=== PATIENT | female | born 1960 | race Caucasian/White ===

== ENCOUNTER 2016-05-21 14:24 | Outpatient (CLI) ==
[2016-05-21 15:36] LABS: ERYTHROCYTE SEDIMENTATION RATE 37 mm/hr (0-20); ESR INTERNAL QC INTERNAL QC VALID
[2016-05-21 15:51] LABS: CHOL/HDL RATIO 5.1 (4.5-5.5); FOLATE 9.7 ng/mL (3.1-20.5); MAGNESIUM 2.1 mg/dL (1.7-2.2)
[2016-05-22 13:13] LABS: ALPHA-1 GLOBULIN 0.2 g/dL (0.0-0.4); BETA GLOBULIN 1.3 g/dL (0.7-1.3); GAMMA GLOBULIN 0.9 g/dL (0.4-1.8); TOTAL GLOBULINS 3.5 g/dL (2.2-3.9)
== END 2016-05-21 14:25 | disposition home or self-care (01) ==
LOC: LAB 14:24
PROVIDERS: ATTEND Psychiatry & Neurology Neurology
DX: G62.9 Polyneuropathy, unspecified (principal)
CPT/HCPCS: 36415; 80061; 82607; 82746; 83036; 83735; 84165; 84439; 84443; 85651; 86140

== ENCOUNTER 2017-01-30 14:00 | Outpatient (RCR) ==
--- NOTE | 2017-01-15 10:42 | RS.OPPTEV2 ---
Date of Note: 01/13/17 Visit #: 1 Date of Evaluation: 01/13/17 Payer Source: Insurance ([facility]) Treatment Diagnosis: Gait difficulty, LE weakness and numbness History of Condition/Mechanism of Injury:: Patient reports having symptoms of neuropathy in both feet since finishing chemotherapy a year ago. States she has had back pain for 13 years, with no recent incident or change in her back pain. Prior Level of Function.....Patient was independent with: ADL's, Self Care, Caregiving, Ambulation/Mobility, Community Integration/Access Level of Function: She no longer is able to work and is on disability. Current Subjective/complaints:: States she has burning pain and impaired sensation. She has been using a straight cane with ambulation for ~ a year, because she was falling. States the cane has greatly decreased her falls. She feels that she shuffles her feet when she walks at times. States she cannot tolerate walking long distances. States she can only drive short distances. States soaking her feet in salt water helps decrease her pain. Reports foot pain keeps her from sleeping. States she gets maybe 4 hours of sleep per night. States her ability to sleep at night depends on how much she has been on her feet that day. Reports difficulty standing to complete ADL's. Treatment Side (optional): Bilateral Medical History Medical History: Hypertension, Arthritis Medical History Comments:: History of fractured right ankle Surgical History: Hysterectomy Smoking Status: Current every day smoker Hx Home Medications: Flexeril, Neurontin, Hydrocodone, Tylenol, Advil Patient's Goals: She would like to be able to walk without the cane. Pain Assessment - Pain Description Pain Location: feet Pain Description: Burning Current Pain Intensity: 4/10 Worst Pain Intensity: 10/10 Functional Outcome Measure Tinetti: 12 (04/30=57.2% impairment) - G Codes & Severity Modifier G Codes & Modifier: NA Source of G Code score: NA Observation - Observation Posture: Forward Head, Rounded Shoulders Gait - Gait Pattern Gait Comments: Patient ambulates with straight cane with flexed forward posture. Demonstrates minimal foot clearance bilaterally and does not consistently clear her feet. Demonstrates decreased bilateral hip and knee flexion. Exhibits decreased heel strike and toe-off bilaterally. General Range of Motion: Bilateral LE AROM is WFL's. Muscle Strength: Right hip and knee strength 4/5 throughout, ankle 3- to 3/5. Left hip and knee 4 to 4+/5 throughout, ankle 3/5. Sensation - Sensation Comments: Reports both feet are entirely numb and painful. Reports less sensitivity to the plantar aspect of the right foot compared to the left. Proprioception is mildly impaired on the left LE and moderately impaired on the right LE. Balance - Sitting Balance Static Sitting Balance: Good Dynamic Sitting Balance: Good - Standing Balance Static Standing Balance: Fair (+) Dynamic Standing Balance: Fair Coordination - Tests Bilateral Toe Tapping: Moderate Deviation (with faster speed) Interventions - Exercise/Activities/Manual Therapy Exercises/Activities: None given today. Patient wearing flip flops into the department. Advised patient that flip flops make her more at risk for falls. Recommended she wear a tennis shoes or at least a sandal with a heel strap. Manual Therapy: NA - Charges Total Direct Minutes: 50 mins Total Treatment Time: 50 mins Procedures billed for this date of service:: KARSTEN holloway. complexity Assessment Assessment: Patient presents to therapy with a diagnosis of LE neuropathy and gait difficulty. She presents with reports of significant bilateral foot pain and difficulty standing or walking. Reports a history of falls and decreased activity level due to difficulty with ambulation. She exhibits weakness throughout both LE's, especially the ankles. Her standing balance and coordination is moderately impaired. She scores 12/28 on Tinetti Assessment, putting her in the category of being at a high risk for falls. She demonstrates potential to gain increased safety and confidence with her mobility through strengthening, coordination, and balance activities. Patient Education: Education of diagnosis, Body/Joint mechanics, Education of Plan of Care Rehab Potential: Good Short Term Goals Goal #1: Pt independent and compliant with HEP. Goal to be met by: 01/29/17 Goal #2: Bilateral hip strength 4+/5. Goal to be met by: 01/29/17 Goal #3: Bilateral ankle strength 3+/5. Goal to be met by: 01/29/17 Goal #4: Static Standiing balance improved to good. Goal to be met by: 01/29/17 Correction Goals Goal #1: Pt knows HEP and to continue ex's to maintain functional level at D/C. Goal to be met by: 02/24/17 Goal #2: Score on Tinetti Assessment improved to 20/28. Goal to be met by: 02/24/17 Goal #3: Pt to ambulate community distances with minimal gait deviation w/ cane. Goal to be met by: 02/24/17 Goal #4: Pt able to amb. household distances w/o assistive device with good safety. Goal to be met by: 02/24/17 Plan - Treatment to be Provided Procedures: Therapeutic Exercises, Therapeutic Activity, Gait Training, Neuromuscular Rehab, Patient Education Modalities: No Modalities - Treatment Plan Frequency: 2-3 X week Duration: 4 weeks ORDER # VISITS AND/OR THROUGH DATE: 02/24/17 - Treatment Code (1) Leg weakness, bilateral Code(s): R29.898 - OT SYMPTOMS AND SIGNS INVOLVING THE MUSCULOSKELETAL SYSTEM Comments: R29.898 (2) Foot pain Code(s): M79.673 - PAIN IN UNSPECIFIED FOOT Qualifiers: Laterality: bilateral Qualified Code(s): M79.671 - Pain in right foot; M79.672 - Pain in left foot (3) Gait abnormality Code(s): R26.9 - UNSPECIFIED ABNORMALITIES OF GAIT AND MOBILITY Comments: R26.9 (4) Polyneuropathy Code(s): G62.9 - POLYNEUROPATHY, UNSPECIFIED Comments: G62.9
--- NOTE | 2017-01-20 14:57 | RS.OPPTDN ---
Subjective Date of Note: 01/20/17 Visit #: 3 Date of Evaluation: 01/13/17 Payer Source: Insurance ([employer]) Treatment Diagnosis: Gait difficulty, LE weakness and numbness Current Subjective/complaints:: Patient reports she is working on basic HEP. Reports fatigue with moderate activities at home and neuropathy in bilateral feet continues to be a problem. Pain Assessment - Pain Description Pain Location: feet Pain Description: Burning Current Pain Intensity: 4/10 Interventions - Exercise/Activities/Manual Therapy Exercises/Activities: 40mins Mat exercises of quad sets, isometric hip add, isometric ankle inversion. Alt hip flexion. SLR. Manual resistance for isometric hip flexion. Red theraband for hip abd in hook-lying, 2s/10reps and ankle df 2s/10reps. In sitting, LAQ, ankle pumps, and hip flexion. In standing toe-ups and marching in place. Reviewed safety. Total minutes of Exercise: 40mins Manual Therapy: NA HOME EXERCISE PROGRAM: Isometric hip add and hip flexion, SLR, standing toe-ups and marching. - Charges Total Direct Minutes: 40mins Total Treatment Time: 40mins Procedures billed for this date of service:: EX3 Assessment: Patient appears motivated to work on HEP today. Patient Education: Home Exercise Program, Home Safety, Activity Modification Patient demonstrates compliance with HEP?: Yes Short Term Goals Goal #1: Pt independent and compliant with HEP. Goal to be met by: 01/29/17 Progress towards Goal:: Progressing Goal #2: Bilateral hip strength 4+/5. Goal to be met by: 01/29/17 Goal #3: Bilateral ankle strength 3+/5. Goal to be met by: 01/29/17 Goal #4: Static Standiing balance improved to good. Goal to be met by: 01/29/17 Networking Specialist Goals Goal #1: Pt knows HEP and to continue ex's to maintain functional level at D/C. Goal to be met by: 02/24/17 Goal #2: Score on Tinetti Assessment improved to 20/28. Goal to be met by: 02/24/17 Goal #3: Pt to ambulate community distances with minimal gait deviation w/ cane. Goal to be met by: 02/24/17 Goal #4: Pt able to amb. household distances w/o assistive device with good safety. Goal to be met by: 02/24/17 Plan PLAN OF CARE EXPIRES ON:: 02/24/17 ORDER # VISITS AND/OR THROUGH DATE: 02/24/17 PLAN: Progress Exercises
--- NOTE | 2017-01-21 15:12 | RS.OPPTDN ---
Subjective Date of Note: 01/16/17 Visit #: 2 Date of Evaluation: 01/13/17 Payer Source: Insurance ([facility]) Treatment Diagnosis: Gait difficulty, LE weakness and numbness Current Subjective/complaints:: Patient says she has pain to both feet and reports general fatigue today to UE/LE's. Pain Assessment - Pain Description Pain Location: feet Pain Description: Burning Current Pain Intensity: 4/10 Interventions - Exercise/Activities/Manual Therapy Exercises/Activities: Patient performs in sitting: LAQ 1#, hip flexion1#, toe taps x 10, Shoulder shrugs, scap adduction, scap retraction with red tband all x 10. Supine: QS, SAQ 1#, pillow squeezes, isometric hip flexion/abd, DF with red tband all 2x10 reps. Total minutes of Exercise: 33 Manual Therapy: NA HOME EXERCISE PROGRAM: Isometric hip add and hip flexion, SLR, standing toe-ups and marching. - Charges Total Direct Minutes: 33 Total Treatment Time: 33 Procedures billed for this date of service:: ex2 Assessment: Patient appeared to moe therex well with mild general fatigue afterwards. Rests were given during supine activity. Patient will benefit from further therex to strengthen the LE's and core. Patient Education: Education of diagnosis, Body/Joint mechanics, Home Exercise Program, Home Safety, Activity Modification, Education of Plan of Care Short Term Goals Goal #1: Pt independent and compliant with HEP. Goal to be met by: 01/29/17 Progress towards Goal:: Progressing Goal #2: Bilateral hip strength 4+/5. Goal to be met by: 01/29/17 Goal #3: Bilateral ankle strength 3+/5. Goal to be met by: 01/29/17 Goal #4: Static Standiing balance improved to good. Goal to be met by: 01/29/17 Skilled Nursing Goals Goal #1: Pt knows HEP and to continue ex's to maintain functional level at D/C. Goal to be met by: 02/24/17 Goal #2: Score on Tinetti Assessment improved to 20/28. Goal to be met by: 02/24/17 Goal #3: Pt to ambulate community distances with minimal gait deviation w/ cane. Goal to be met by: 02/24/17 Goal #4: Pt able to amb. household distances w/o assistive device with good safety. Goal to be met by: 02/24/17 Plan PLAN OF CARE EXPIRES ON:: 02/24/17 ORDER # VISITS AND/OR THROUGH DATE: 02/24/17 PLAN: Progress Exercises
--- NOTE | 2017-01-28 13:27 | RS.OPPTDN ---
Subjective Date of Note: 01/28/17 Visit #: 4 Date of Evaluation: 01/13/17 Payer Source: Insurance ([employer]) Treatment Diagnosis: Gait difficulty, LE weakness and numbness Current Subjective/complaints:: Patient reports slight improvement in strength of the LE's. States she was out of town on a long weekend and is more tired today. Pain Assessment - Pain Description Pain Location: feet Pain Description: Burning Current Pain Intensity: 4/10 Interventions - Exercise/Activities/Manual Therapy Exercises/Activities: In sitting, LAQ, hip flexion, and ankle pumps. In supine , QS, SAQ increased to 2# and hook-lying LE lifts 2#. Isometric hip flexion. Isometric hip add and isometric ankle inversion with ball. Ankle df, inversion, and eversion with red tband and ham curl red theraband. All 2s/10reps. Patient assisted on and off stationary bike, 3mins slow revolutions. NEURO, 10mins standing toe-ups, mini-squats, and marching. Side-stepping and unilateral standing, all at hand rail for balance work. Assisted patient out to car. She walks with cane and safety with gait is discussed. Total minutes of Exercise: 30mins EX, 10mins NEURO Manual Therapy: NA HOME EXERCISE PROGRAM: Isometric hip add and hip flexion, SLR, standing toe-ups and marching. Red theraband for ankle df. - Charges Total Direct Minutes: 40mins Total Treatment Time: 40mins Procedures billed for this date of service:: EX2, NEURO Assessment: Patient reporting improvement in LE strength. Patient motivated to work on HEP and has improved safety awareness. Patient Education: Body/Joint mechanics, Home Exercise Program, Home Safety, Activity Modification Patient demonstrates compliance with HEP?: Yes Short Term Goals Goal #1: Pt independent and compliant with HEP. Goal to be met by: 01/29/17 Progress towards Goal:: Progressing Goal #2: Bilateral hip strength 4+/5. Goal to be met by: 01/29/17 Progress towards Goal:: Progressing Goal #3: Bilateral ankle strength 3+/5. Goal to be met by: 01/29/17 Progress towards Goal:: Progressing Goal #4: Static Standing balance improved to good. Goal to be met by: 01/29/17 Progress towards Goal:: Progressing Assisted Goals Goal #1: Pt knows HEP and to continue ex's to maintain functional level at D/C. Goal to be met by: 02/24/17 Goal #2: Score on Tinetti Assessment improved to 20/28. Goal to be met by: 02/24/17 Goal #3: Pt to ambulate community distances with minimal gait deviation w/ cane. Goal to be met by: 02/24/17 Goal #4: Pt able to amb. household distances w/o assistive device with good safety. Goal to be met by: 02/24/17 Plan PLAN OF CARE EXPIRES ON:: 02/24/17 ORDER # VISITS AND/OR THROUGH DATE: 02/24/17 PLAN: Progress Exercises (Continue progression of exercise and balance work to increase safe, functional activity.)
--- NOTE | 2017-01-30 16:25 | RS.OPPTDN ---
Subjective Date of Note: 01/30/17 Visit #: 5 Date of Evaluation: 01/13/17 Payer Source: Insurance ([employer]) Treatment Diagnosis: Gait difficulty, LE weakness and numbness Current Subjective/complaints:: Patient reports her LE's have been weak since last session, but feels like she is seeing some improvement in ambulation. States she is working on HEP. Pain Assessment - Pain Description Pain Location: feet Pain Description: Burning Current Pain Intensity: mild to mod in bilateral hips Interventions - Exercise/Activities/Manual Therapy Exercises/Activities: In supine, QS, SAQ 2# and hook-lying LE lifts 2#. Isometric hip flexion. Isometric hip add and isometric ankle inversion with ball. Ankle df, inversion, and eversion with red tband and ham curl red theraband. All 2s/10reps. Began hip add and abd in hook-lying with red theraband 2s/10reps. In sitting, LAQ and ankle pumps. Reviewed HEP and walked patient to car to assess safety and progress. Total minutes of Exercise: 32mins Manual Therapy: NA HOME EXERCISE PROGRAM: Isometric hip add and hip flexion, SLR, standing toe-ups and marching. Red theraband for ankle df. - Objective Findings Observations,measurements,etc.: Patient actively picking up feet with extension of toes when advancing feet with ambulation, as she is concerned about avoiding falls. - Charges Total Direct Minutes: 32mins Total Treatment Time: 32mins Procedures billed for this date of service:: EX2 Assessment: Patient with increased fatigue this week, but is motivated to progress. She is actively working on improving gait pattern and safety. Patient Education: Home Exercise Program, Home Safety, Activity Modification Patient demonstrates compliance with HEP?: Yes Short Term Goals Goal #1: Pt independent and compliant with HEP. Goal to be met by: 01/29/17 Progress towards Goal:: Progressing Goal #2: Bilateral hip strength 4+/5. Goal to be met by: 01/29/17 Progress towards Goal:: Progressing Goal #3: Bilateral ankle strength 3+/5. Goal to be met by: 01/29/17 Progress towards Goal:: Progressing Goal #4: Static Standing balance improved to good. Goal to be met by: 01/29/17 Progress towards Goal:: Progressing Cork Molder Goals Goal #1: Pt knows HEP and to continue ex's to maintain functional level at D/C. Goal to be met by: 02/24/17 Goal #2: Score on Tinetti Assessment improved to 20/28. Goal to be met by: 02/24/17 Goal #3: Pt to ambulate community distances with minimal gait deviation w/ cane. Goal to be met by: 02/24/17 Progress towards goal: Progressing Goal #4: Pt able to amb. household distances w/o assistive device with good safety. Goal to be met by: 02/24/17 Plan PLAN OF CARE EXPIRES ON:: 02/24/17 ORDER # VISITS AND/OR THROUGH DATE: 02/24/17 PLAN: Progress Exercises (Continue to progress exercise to increase LE strength for safe and functional activity level.)
== END 2017-01-31 ==
PROVIDERS: ATTEND Psychiatry & Neurology Neurology
DX: G62.9 Polyneuropathy, unspecified (principal)

== ENCOUNTER 2017-02-10 14:06 | Emergency (ER) ==
[2017-02-10 14:19] VITALS: BP 164/97; TEMP 98.7; BMI 44.1
[2017-02-10] MEDS: DUONEB NEB STA (14:37)
[2017-02-10 14:46] LABS: BASOPHILS # (AUTO) 0.1 K/uL (0-0.2); BASOPHILS % (AUTO) 0.7 % (0.0-3.0); EOSINOPHILS # (AUTO) 0.3 K/ul (0.0-0.7); EOSINOPHILS % (AUTO) 3.3 % (0.0-7.0); HEMOGLOBIN 14.6 g/dl (12.0-16.0); IMMATURE GRANULOCYTE % (AUTO) 0.3 % (0.0-5.0); LYMPHOCYTES % (AUTO) 33.6 (10.0-50.0); MEAN CORPUSCULAR HEMOGLOBIN 29.8 pg (27.0-31.0); MEAN CORPUSCULAR VOLUME 87.8 fl (81.0-99.0); MONOCYTES # (AUTO) 0.7 K/uL (0.4-2.0); MONOCYTES % (AUTO) 7.3 (0-10); NEUTROPHILS # (AUTO) 4.9 K/ul (2.0-6.9); NEUTROPHILS % (AUTO) 54.8; PLATELET COUNT 218 10^3/uL (140-440); WHITE BLOOD COUNT 8.88 K/ul (4.6-10.2)
[2017-02-10] MEDS: ZITHROMAX PO STA (14:46)
[2017-02-10] MEDS: DECADRON 4 MG/ML SDV IM STA (14:49)
[2017-02-10 14:56] LABS: ALBUMIN 3.2 g/dL (3.4-5.0); ALBUMIN/GLOBULIN RATIO 0.74; ANION GAP 14.6; BILIRUBIN,TOTAL 0.23 mg/dL (0.00-1.20); BUN/CREATININE RATIO 15.46; CALCIUM 9.7 mg/dL (8.2-10.2); CREATININE 0.97 mg/dL (0.60-1.30); POTASSIUM 3.6 mmol/L (3.5-5.10); TOTAL PROTEIN 7.5 g/dL (6.4-8.2)
--- NOTE | 2017-02-10 15:56 | CT ---
EXAM: CT THORAX HISTORY: Cough. TECHNIQUE: CT thorax without intravenous contrast. 5-mm axial sections. Coronal and sagittal re-for mations. COMPARISON: None FINDINGS: Normal heart size. No pericardial effusion. Minimal atherosclerotic disease of the aorta. There are a few small nonspecific mediastinal and hilar lymph nodes. Lungs are clear. No acute infiltrates, vascular congestion, pneumothorax or pleural fluid. Bones reveal early osteophytic spurring of the mid thoracic spine and. 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 Incidental note of mild fatty infiltration of the l iver and a small 1.3 cm fatty left adrenal nodule most consistent with an adenoma. There may be a sm aller similar nodule of the right adrenal gland. IMPRESSION: Lungs are free of infiltrate. No vascular congestion.
--- NOTE | 2017-02-10 16:20 | ED.PDOC ---
General ED Provider: Dr. POP GUTHRIE Chief Complaint: Respiratory Complaint Stated Complaint: cough , flu like symptoms Time Seen by Physician: 14:10 (pt reports smoking 1 pk/day) Mode of Arrival: Walk-In Information Source: Patient Exam Limitations: No limitations Primary Care Provider: GEORGE TSAI Nursing and Triage Documentation Reviewed and Agree: Yes Respiratory Complaint Exam - Respiratory Complaint/Exam Onset/Duration: 1 week Symptoms Are: Still present Timing: Intermittent Initial Severity: Mild Current Severity: Mild Location: Nose, Throat, Chest Character: Reports: Non-productive cough Aggravating: Reports: None Alleviating: Reports: Bronchodilators Associated Signs and Symptoms: Reports: URI, Nasal congestion. Denies: Rapid breathing, Dyspnea, Fever, Chills, Chest pain, Pleuritic chest pain, Wheezing, Hemoptysis, Dizziness, Calf pain, Calf swelling, Edema, Hoarseness, Sinus discomfort, Vomiting, Sore throat, Weight loss, Decreased oral intake, Increased thirst, Increased appetite, Increased urination Related History: Reports: Similar episode History of Healthcare-Acquired Pneumonia: No Related Surgical History: Reports: None Pulmonary Embolism Risk Factors: Smoking Cardiac Risk Factors: Reports: Smoking Pseudomonas Risk Factors: Reports: None Tuberculosis Risk Factors: Reports: None Status Asthmaticus Risk Factors: Reports: None Home Oxygen Use: No Recent Stress Test: No Recent Echo/LV Function: No Current Antibiotic Use: No Current Asthma Medication Use: No Respiratory Distress: None Inadequate Respiratory Effort: No Dysphagia Present: No Stridor Present: No JVD Present: No Accessory Muscle Use: No Retractions: Not Present Diminished Breath Sounds: No Sinus Tenderness: None Grunting Respirations: No Kussmaul Respirations: No Differential Diagnoses: Pneumonia, Bronchitis Review of Systems - Review Of Systems Constitutional: Reports: Malaise Eyes: Reports: No symptoms Ears, Nose, Mouth, Throat: Reports: No symptoms Respiratory: Reports: Cough, Wheezing Cardiac: Reports: No symptoms GI: Reports: No symptoms : Reports: No symptoms Musculoskeletal: Reports: No symptoms Skin: Reports: No symptoms Neurological: Reports: No symptoms Endocrine: Reports: No symptoms Hematologic/Lymphatic: Reports: No symptoms All Other Systems: Reviewed and Negative Past Medical History - Past Medical History Previously Healthy: Yes Endocrine: Reports: None Cardiovascular: Reports: None Respiratory: Reports: None Hematological: Reports: None Gastrointestinal: Reports: None Genitourinary: Reports: None Neuro/Psych: Reports: None Musculoskeletal: Reports: None Cancer: Reports: None Last Menstrual Period: 2010 - Surgical History General Surgical History: Reports: None - Family History Family History: Reports: None - Social History Smoking Status: Current every day smoker Hx Substance Use: No Alcohol Screening: Occasionally - Immunizations Tetanus Shot up to Date: No Physical Exam - Physical Exam Appearance: Well-appearing, No pain distress, Well-nourished Eyes: KING, EOMI, Conjunctiva clear ENT: Ears normal, Nose normal, Oropharynx normal Respiratory: Airway patent, Breath sounds clear, Breath sounds equal, Respirations nonlabored Cardiovascular: RRR, Pulses normal, No rub, No murmur GI/: Soft, Nontender, No masses, Bowel sounds normal, No Organomegaly Musculoskeletal: Normal strength, ROM intact, No edema, No calf tenderness Skin: Warm, Dry, Normal color Neurological: Sensation intact, Motor intact, Reflexes intact, Cranial nerves intact, Alert, Oriented Psychiatric: Affect appropriate, Mood appropriate Critical Care Note - Critical Care Note Total Time (mins): 0 Course - Course Hematology/Chemistry: 02/10/17 14:36 02/10/17 14:36 Orders, Labs, Meds: Lab Review 02/10/17 02/10/17 14:36 14:36 WBC 8.88 RBC 4.90 Hgb 14.6 Hct 43.0 MCV 87.8 MCH 29.8 MCHC 34.0 RDW Coeff of Maryjane 14.7 Plt Count 218 Immature Gran % (Auto) 0.3 Neut % (Auto) 54.8 Lymph % (Auto) 33.6 [place] % (Auto) 7.3 Eos % (Auto) 3.3 Baso % (Auto) 0.7 Immature Gran # (Auto) 0.0 Neut # 4.9 Lymph # 3.0 Juab # 0.7 Eos # 0.3 Baso # 0.1 Sodium 142 Potassium 3.6 Chloride 106 Carbon Dioxide 25 Anion Gap 14.6 BUN 15 Creatinine 0.97 Estimated GFR (MDRD) 59.00 BUN/Creatinine Ratio 15.46 Glucose 252 H Calcium 9.7 Total Bilirubin 0.23 AST 15 ALT 30 Alkaline Phosphatase 150 H Total Protein 7.5 Albumin 3.2 L Globulin 4.3 Albumin/Globulin Ratio 0.74 Orders Category Date Time Status NEBULIZER TREATMENT Stat CARDIO 02/10/17 14:26 Completed CBC W/ AUTO DIFF Stat LAB 02/10/17 14:36 Completed COMPREHENSIVE METABOLIC PANEL Stat LAB 02/10/17 14:36 Completed Azithromycin [Zithromax] MEDS 02/10/17 14:27 Discontinued 1,000 mg PO ONCE STA Dexamethasone 4 mg/ml Inj [Decadron 4 mg/ml Sdv] MEDS 02/10/17 14:26 Discontinued 8 mg IM ONCE STA Ipratropium/Albuterol Neb [Duoneb] MEDS 02/10/17 14:26 Discontinued 1 vial NEB ONCE STA CT CHEST W/O CONTRAST Stat RADS 02/10/17 14:26 Completed Medications Discontinued Medications Generic Name Dose Route Start Last Admin Trade Name Freq PRN Reason Stop Dose Admin Albuterol/Ipratropium 1 vial 02/10/17 14:26 02/10/17 14:37 Duoneb NEB 02/10/17 14:27 1 vial ONCE STA Administration Azithromycin 1,000 mg 02/10/17 14:27 02/10/17 14:46 Zithromax PO 02/10/17 14:28 1,000 mg ONCE STA Administration Dexamethasone Sodium Phosphate 8 mg 02/10/17 14:26 02/10/17 14:49 Decadron 4 Mg/Ml Sdv IM 02/10/17 14:27 8 mg ONCE STA Administration Vital Signs: Temp Pulse Resp BP Pulse Ox 02/10/17 14:08 98.7 F 116 H 20 164/97 H 94 L Departure - Departure Time of Disposition: 16:19 Disposition: HOME SELF-CARE Discharge Problem: Diabetes mellitus type 2, controlled, Bronchitis Instructions: Type 2 Diabetes in Adults (ED), Acute Bronchitis (ED), Wheezing ( ED), How Your Lungs Work (ED), How to Stop Smoking (ED) Condition: Good Pt referred to PMD for follow-up: Yes Additional Instructions: Please call your Family Physician as soon as possible to schedule a follow-up appointment.
== END 2017-02-10 16:36 | disposition home or self-care (01) ==
LOC: ED 14:06
DX: J40 Bronchitis, not specified as acute or chronic (principal); E11.9 Type 2 diabetes mellitus without complications; F17.210 Nicotine dependence, cigarettes, uncomplicated
CPT/HCPCS: 36415; 80053; 85025; 94640; 96372; 99283

== ENCOUNTER 2017-07-29 15:29 | Emergency (ER) ==
[2017-07-29 15:40] VITALS: BP 144/96; TEMP 97.6; BMI 42.9
[2017-07-29] MEDS ORDERED: ROCEPHIN IM STA (16:20)
[2017-07-29] MEDS ORDERED: LIDOCAINE HCL 1% SDV IM STA (16:20)
[2017-07-29] MEDS ORDERED: DECADRON 4 MG/ML SDV IM STA (16:21)
--- NOTE | 2017-07-29 16:59 | CT ---
Exam: CT of the chest without intravenous contrast. Comparison: 02/10/2017. Reason for exam: Cough. FINDINGS: Right-sided Port-A-Cath is seen with the tip in the superior vena cava. No pneumothorax, pleural effusion, or focal consolidation. There is a 5 mm pleural-based nodule in t he right upper lobe on axial image number 14. The aorta is normal in course and caliber. The heart is not enlarged. Mediastinal lymph nodes are incompletely evaluated without intravenous contrast administration. Atherosclerotic disease is seen within the aorta and distal arterial vasculature. The liver is lower in attenuation in the spleen with a heterogeneous appearing echotexture and areas of fatty sparing. The adrenal glands have a nodular appearance. Impression: 1. 5 mm right apical pleural based nodule on axial image number 14. If clinical concern exists, 6-m [facility] follow-up may be performed to document stability / resolution. 2. No pneumothorax, pleural effusion, or focal consolidation. 3. Hepatic steatosis with a heterogeneous appearing hepatic echotexture with areas of water presumed to be focal fat and fatty sparing. If clinical concern exists, further evaluation with contrasted CT imaging may be performed. 4. Similar appearing low density nodularity in both of the adrenal glands are likely adenomas.
[2017-07-29] MEDS ORDERED: DUONEB NEB STA (17:23)
--- NOTE | 2017-07-29 17:27 | ED.PDOC ---
General ED Provider: Dr. POP GUTHRIE Chief Complaint: Respiratory Complaint Stated Complaint: cough, wheez , chills Time Seen by Physician: 15:40 (seen with christina at all times ) Mode of Arrival: Walk-In Information Source: Patient Exam Limitations: No limitations Primary Care Provider: GEORGE TSAI Nursing and Triage Documentation Reviewed and Agree: Yes Reviewed sepsis parameters & appropriate labs ordered?: No System Inflammatory Response Syndrome: Not Applicable Sepsis Protocol: For patient's 13 years and over: Temp is 96.8 and below OR 101 and greater Pulse >90 BPM Resp >20/minute Acutely Altered Mental Status Are patient's symptoms suggestive of a new infection, such as: -Pneumonia -Skin, Soft Tissue -Endocarditis -UTI -Bone, Joint Infection -Implantable Device -Acute Abdominal Infection -Wound Infection -Meningitis -Blood Stream Catheter Infection -Unknown System Inflammatory Response Syndrome: Not Applicable Respiratory Complaint Exam - Shortness of Air Complaint/Exam Onset/Duration: 4 days Symptoms Are: Still present Timing: Intermittent Initial Severity: Moderate Current Severity: Moderate Aggravating: Reports: None Alleviating: Reports: None Associated Signs and Symptoms: Reports: Cough, Wheezing, Chills. Denies: Chest pain with cough, Chest pain, Fever, Diaphoresis, Nasal congestion, Dizziness, Calf pain, Calf swelling, Edema, Rapid breathing, Labored breathing, Decreased intake Related History: Reports: Similar episode History of Healthcare-Acquired Pneumonia: No Pulmonary Embolism Risk Factors: Reports: Bedrest, Smoking Cardiac Risk Factors: Reports: Smoking, Hypertension Pseudomonas Risk Factors: Reports: Chronic Lung Disease Tuberculosis Risk Factors: Reports: None Home Oxygen Use: No Recent Stress Test: No Recent Echo/LV Function: No Respiratory Distress: None Stridor Present: No Tracheal Deviation: No Subcutaneous Emphysema: No Accessory Muscle Use: No Retractions: Not Present Diminished Breath Sounds: No Prolonged Expiratory Phase: No Unable to Speak Full Sentences: No Fatigue: No Leg Swelling: No Tana's Sign Present: No Grunting Respirations: No Kussmaul Respirations: No Differential Diagnoses: COPD Exacerbation, Pneumonia, Bronchitis Review of Systems - Review Of Systems Constitutional: Reports: Chills, Malaise, Loss of appetite Eyes: Reports: No symptoms Ears, Nose, Mouth, Throat: Reports: No symptoms Respiratory: Reports: Cough, Wheezing Cardiac: Reports: No symptoms GI: Reports: No symptoms : Reports: No symptoms Musculoskeletal: Reports: No symptoms Skin: Reports: No symptoms Neurological: Reports: No symptoms Endocrine: Reports: No symptoms Hematologic/Lymphatic: Reports: No symptoms All Other Systems: Reviewed and Negative Past Medical History - Past Medical History Previously Healthy: Yes Endocrine: Reports: None Cardiovascular: Reports: None Respiratory: Reports: None Hematological: Reports: None Gastrointestinal: Reports: None Genitourinary: Reports: None Neuro/Psych: Reports: None Musculoskeletal: Reports: None Cancer: Reports: None Last Menstrual Period: unknown - Surgical History General Surgical History: Reports: None - Family History Family History: Reports: None - Social History Smoking Status: Current every day smoker, Heavy tobacco smoker Hx Substance Use: No Alcohol Screening: None Physical Exam - Physical Exam Appearance: Ill-appearing Eyes: KING, EOMI, Conjunctiva clear ENT: Ears normal, Nose normal, Oropharynx normal Respiratory: Rhonchi, Wheezes Cardiovascular: RRR, Pulses normal, No rub, No murmur GI/: Soft, Nontender, No masses, Bowel sounds normal, No Organomegaly Musculoskeletal: Normal strength, ROM intact, No edema, No calf tenderness Skin: Warm, Dry, Normal color Neurological: Sensation intact, Motor intact, Reflexes intact, Cranial nerves intact, Alert, Oriented Psychiatric: Affect appropriate, Mood appropriate Interpretation - Radiology Interpretation Radiology Interpretation By: Radiologist Radiology Results: Positive (right apical nodule) Critical Care Note - Critical Care Note Total Time (mins): 0 Course - Course Orders, Labs, Meds: Lab Review 07/29/17 16:39 Influ A Molecular Assay Negative by naat Influ B Molecular Assay Positive by naat H Orders Category Date Time Status NEBULIZER TREATMENT Stat CARDIO 07/29/17 17:23 Ordered FLU A/B MOLECULAR Stat LAB 07/29/17 16:39 Completed MOLECULAR GROUP A STREP Stat LAB 07/29/17 16:39 Completed Ceftriaxone Sodium [Rocephin] MEDS 07/29/17 16:20 Discontinued 1 gm IM ONCE STA Dexamethasone 4 mg/ml Inj [Decadron 4 mg/ml Sdv] MEDS 07/29/17 16:21 Discontinued 4 mg IM ONCE STA Ipratropium/Albuterol Neb [Duoneb] MEDS 07/29/17 17:23 Stat 1 vial NEB ONCE STA Lidocaine HCl/Pf [Lidocaine HCl 1% Sdv] MEDS 07/29/17 16:20 Discontinued 2.1 ml IM ONCE STA CT CHEST W/O CONTRAST Stat RADS 07/29/17 16:20 Completed Medications Discontinued Medications Generic Name Dose Route Start Last Admin Trade Name Todd PRN Reason Stop Dose Admin Albuterol/Ipratropium 1 vial 07/29/17 17:23 Duoneb NEB 07/29/17 17:24 ONCE STA Ceftriaxone Sodium 1 gm 07/29/17 16:20 07/29/17 16:41 Rocephin IM 07/29/17 16:21 1 gm ONCE STA Administration Dexamethasone Sodium Phosphate 4 mg 07/29/17 16:21 07/29/17 16:45 Decadron 4 Mg/Ml Sdv IM 07/29/17 16:22 4 mg ONCE STA Administration Lidocaine HCl 2.1 ml 07/29/17 16:20 07/29/17 16:42 Lidocaine Hcl 1% Sdv IM 07/29/17 16:21 2.1 ml ONCE STA Administration Vital Signs: Temp Pulse Resp BP Pulse Ox 07/29/17 15:30 97.6 F 121 H 22 144/96 H 94 L Departure - Departure Time of Disposition: 17:27 Disposition: HOME SELF-CARE Discharge Problem: Influenza B, Pulmonary nodule Instructions: Pulmonary Nodules (ED), Influenza (ED) Condition: Good Pt referred to PMD for follow-up: Yes IPMP verified?: No Additional Instructions: Please call your Family Physician as soon as possible to schedule a follow-up appointment. Prescriptions: Amoxicillin 500 mg PO Q8HR #21 tablet Azithromycin [Zithromax] 500 mg PO DIRECTED #6 tablet Allergies/Adverse Reactions: Allergies bandaids Adverse Reaction (Uncoded 07/29/17 16:48) Home Medications: Ambulatory Orders Amitriptyline HCl [Elavil] 10 mg PO DAILY 07/29/17 Amoxicillin 500 mg PO Q8HR #21 tablet 07/29/17 Azithromycin [Zithromax] 500 mg PO DIRECTED #6 tablet 07/29/17 Clonazepam [Klonopin] 0.5 mg PO BID 07/29/17 Cyclobenzaprine HCl [Flexeril] 10 mg PO DAILY 07/29/17 Diltiazem HCl [Diltiazem 24Hr Cd] 120 mg PO DAILY 07/29/17 Gabapentin [Neurontin] 300 mg PO DIRECTED 07/29/17 Gabapentin [Neurontin] 600 mg PO BID 07/29/17 Levothyroxine Sodium [Synthroid] 150 mcg PO DAILY 07/29/17 Mecobal/Levomefolat Ca/B6 Phos [l-Zzzinb-I4-B12 Tablet] 1 each PO DAILY Metoprolol Succinate [Toprol Xl] 12.5 mg PO DAILY 07/29/17 Simvastatin [Zocor] 20 mg PO DAILY 07/29/17
== END 2017-07-29 18:00 | disposition home or self-care (01) ==
LOC: ED 15:29
DX: J10.1 Influenza due to other identified influenza virus with other respiratory manifestations (principal); R91.1 Solitary pulmonary nodule; I10 Essential (primary) hypertension; F17.210 Nicotine dependence, cigarettes, uncomplicated
CPT/HCPCS: 87502; 87651; 94640; 96372; 99283

== ENCOUNTER 2017-12-18 18:42 | Emergency (ER) ==
[2017-12-18 18:50] VITALS: BP 121/89; TEMP 98.1; BMI 49.1
[2017-12-18] MEDS ORDERED: ASPIRIN CHEWABLE PO STA (18:53)
[2017-12-18] MEDS ORDERED: NITROSTAT SL STA (18:53)
[2017-12-18] MEDS ORDERED: ASPIRIN CHEWABLE ONE (18:54)
[2017-12-18] MEDS ORDERED: NITROSTAT SL ONE (18:55)
--- NOTE | 2017-12-18 18:55 | ED.PDOC ---
General ED Provider: Dr. HELIO DINH-ER Chief Complaint: Chest Pain Stated Complaint: my chest hurts Time Seen by Physician: 18:50 Mode of Arrival: Walk-In Information Source: Patient Exam Limitations: No limitations Nursing and Triage Documentation Reviewed and Agree: Yes Does patient meet sepsis criteria?: No System Inflammatory Response Syndrome: Not Applicable Sepsis Protocol: For patient's 13 years and over: Temp is 96.8 and below OR 101 and greater Pulse >90 BPM Resp >20/minute Acutely Altered Mental Status Are patient's symptoms suggestive of a new infection, such as: -Pneumonia -Skin, Soft Tissue -Endocarditis -UTI -Bone, Joint Infection -Implantable Device -Acute Abdominal Infection -Wound Infection -Meningitis -Blood Stream Catheter Infection -Unknown Cardiovascular Complaint Exam - Chest Pain Complaint/Exam Onset: Gradual Duration: 1 hr Symptoms Are: Still present Timing: Constant Initial Severity: Mild Current Severity: Moderate Location: Reports: Diffuse Character: Reports: Dull, Aching Aggravating: Reports: None Alleviating: Reports: Rest History of Healthcare-Acquired Pneumonia: Reports: No AMI/ACS Risk Factors: Reports: Obesity TAD Risk Factors: Reports: Hypertension Pulmonary Embolism Risk Factors: Reports: None Prior Care for this Complaint: Yes Recent Stress Test: No Recent Echo/LV Function: No JVD Present: No Subcutaneous Emphysema Present: No Diminshed Breath Sounds: No Reproducible Chest Wall Pain: No Bilateral Pulses Present: Yes Unequal Pulses Noted: No If Risk Factors for AMI/ACS Consider: EKG, Aspirin Personal Lines Sales Executive Consulted: No Differential Diagnoses: Acute IN, ACS Quality Indicator For Non-Traumatic Chest Pain/Syncope: EKG Performed Review of Systems - Review Of Systems Constitutional: Reports: No symptoms Eyes: Reports: No symptoms Ears, Nose, Mouth, Throat: Reports: No symptoms Respiratory: Reports: No symptoms Cardiac: Reports: Chest pain GI: Reports: No symptoms : Reports: No symptoms Musculoskeletal: Reports: No symptoms Skin: Reports: No symptoms Neurological: Reports: No symptoms Endocrine: Reports: No symptoms Hematologic/Lymphatic: Reports: No symptoms All Other Systems: Reviewed and Negative Past Medical History - Past Medical History Previously Healthy: Yes Endocrine: Reports: None Cardiovascular: Reports: A-Fib Respiratory: Reports: None Hematological: Reports: None Gastrointestinal: Reports: None Genitourinary: Reports: None Neuro/Psych: Reports: None Musculoskeletal: Reports: None Cancer: Reports: None Last Menstrual Period: na - Surgical History General Surgical History: Reports: None - Family History Family History: Reports: None - Social History Smoking Status: Current every day smoker, Heavy tobacco smoker Hx Substance Use: No Alcohol Screening: None - Immunizations Tetanus Shot up to Date: Yes Physical Exam - Physical Exam Appearance: Well-appearing, No pain distress, Well-nourished Pain Distress: Moderate Eyes: KING, EOMI, Conjunctiva clear ENT: Ears normal, Nose normal, Oropharynx normal Neck: Supple Respiratory: Airway patent, Breath sounds clear, Breath sounds equal, Respirations nonlabored Cardiovascular: RRR, Pulses normal, No rub, No murmur GI/: Soft, Nontender, No masses, Bowel sounds normal, No Organomegaly Musculoskeletal: Normal strength, ROM intact, No edema, No calf tenderness Skin: Warm, Dry, Normal color Neurological: Sensation intact, Motor intact, Reflexes intact, Cranial nerves intact, Alert, Oriented Psychiatric: Affect appropriate, Mood appropriate, Anxious Interpretation - EKG Interpretation Time of EKG #1: 19:07 Rate: Normal Rhythm: Sinus Ectopy: None [place]: NL ST Segment: Other Interpretation: st seg changes Re-Evaluation - Re-Evaluation Time of Re-Evaluation: 19:07 Status: Improved Vital Signs Stable: Yes Pain Level: 0 Appearance: NAD Lungs: Clear Skin: Warm and Dry Neuro: Alert and Oriented X3 CV: RRR Physician Notification - Case Discussed Physician Notified: dr nathan Time of Notification: 19:07 Critical Care Note - Critical Care Note Total Time (mins): 15 Course - Course Orders, Labs, Meds: Orders Category Date Time Status EKG-(ED ONLY) Stat CARDIO 12/18/17 18:47 Ordered Dialysis Rn [ED TRANSPORTATION MODELER APPLIED] .ONCE EMERGENCY 18 18:47 Active AMYLASE Stat LAB 12/18/17 17:00 Received CBC W/ AUTO DIFF Stat LAB 12/18/17 17:00 Received COMPREHENSIVE METABOLIC PANEL Stat LAB 12/18/17 17:00 Received CREATINE KINASE Stat LAB 12/18/17 17:00 Received FREE T4 (FREE THYROXINE) Stat LAB 12/18/17 17:00 Received LIPASE Stat LAB 12/18/17 17:00 Received TROPONIN I Stat LAB 12/18/17 17:00 Received TSH [THYROID STIMULATING HORMONE] Stat LAB 12/18/17 17:00 Received Aspirin [Aspirin Chewable] MEDS 12/18/17 18:54 Discontinued 324 mg .ROUTE .STK-MED ONE Aspirin [Aspirin Chewable] MEDS 12/18/17 18:53 Discontinued 324 mg PO ONCE STA Nitroglycerin [Nitrostat] MEDS 12/18/17 18:55 Discontinued 0.4 mg SL .STK-MED ONE Nitroglycerin [Nitrostat] MEDS 12/18/17 18:53 Discontinued 0.4 mg SL ONCE STA Medications Discontinued Medications Generic Name Dose Route Start Last Admin Trade Name Todd PRN Reason Stop Dose Admin Aspirin 324 mg 12/18/17 18:53 12/18/17 18:58 Aspirin Chewable PO 12/18/17 18:54 324 mg ONCE STA Administration Nitroglycerin 0.4 mg 12/18/17 18:53 12/18/17 18:58 Nitrostat SL 12/18/17 18:54 0.4 mg ONCE STA Administration Vital Signs: Temp Pulse Resp BP Pulse Ox 12/18/17 18:44 98.1 F 131 H 32 H 121/89 97 KENJI Risk Score KENJI Risk Score: Risk Score Odds of by 30D 0 0.1 (0.1-0.2) 1 0.3 (0.2-0.3) 2 0.4 (0.3-0.5) 3 0.7 (0.6-0.9) 4 1.2 (1.0-1.5) 5 2.2 (1.9-2.6) 6 3.0 (2.5-3.6) 7 4.8 (3.8-6.1) Departure - Departure Time of Disposition: 19:07 Disposition: TSF SHORT-TRM HOSP Discharge Problem: Chest pain Instructions: Chest Pain (ED) Condition: Good Pt referred to PMD for follow-up: Yes IPMP verified?: No Allergies/Adverse Reactions: Allergies bandaids Adverse Reaction (Uncoded 07/29/17 16:48) Home Medications: Ambulatory Orders Amitriptyline HCl [Elavil] 10 mg PO DAILY 07/29/17 Cyclobenzaprine HCl [Flexeril] 10 mg PO DAILY PRN 07/29/17 Diltiazem HCl [Diltiazem 24Hr Cd] 120 mg PO DAILY 07/29/17 Gabapentin [Neurontin] 600 mg PO TID 07/29/17 Levothyroxine Sodium [Synthroid] 150 mcg PO DAILY 07/29/17 Metoprolol Succinate [Toprol Xl] 25 mg PO DAILY 07/29/17 Transfer Form Completed: Yes Disposition Discussed With: Patient, Family
== END 2017-12-18 19:16 | disposition short-term general hospital (02) ==
LOC: ED 18:42
DX: R07.9 Chest pain, unspecified (principal); I10 Essential (primary) hypertension; E66.9 Obesity, unspecified; F17.210 Nicotine dependence, cigarettes, uncomplicated; I21.9 Acute myocardial infarction, unspecified; R00.0 Tachycardia, unspecified
CPT/HCPCS: 36415; 80053; 82150; 82550; 82553; 83690; 84439; 84443; 84484; 85025; 93005; 93010; 99285

== ENCOUNTER 2018-01-14 16:42 | Emergency (ER) ==
--- NOTE | 2018-01-14 16:46 | ED.PDOC ---
General ED Provider: Dr. HELIO ISAACS Chief Complaint: Chest Pain Stated Complaint: Onset chest pain at home. Commercial Kitchen Service Technician contacted and advised to to to ER. Hx of AMI 2 weeks ago Had 2 stents placed but has 2 other 2 other vessels requiring treatment. Dr Gonzalez is her Commercial Kitchen Service Technician. Time Seen by Physician: 16:50 Mode of Arrival: Wheelchair Information Source: Patient, Family Exam Limitations: No limitations Nursing and Triage Documentation Reviewed and Agree: Yes Does patient meet sepsis criteria?: No System Inflammatory Response Syndrome: Not Applicable Sepsis Protocol: For patient's 13 years and over: Temp is 96.8 and below OR 101 and greater Pulse >90 BPM Resp >20/minute Acutely Altered Mental Status Are patient's symptoms suggestive of a new infection, such as: -Pneumonia -Skin, Soft Tissue -Endocarditis -UTI -Bone, Joint Infection -Implantable Device -Acute Abdominal Infection -Wound Infection -Meningitis -Blood Stream Catheter Infection -Unknown Cardiovascular Complaint Exam - Chest Pain Complaint/Exam Onset: Sudden Symptoms Are: Still present (But improved) Timing: Constant Initial Severity: Severe Current Severity: Moderate Location: Reports: Diffuse, Midsternal Character: Reports: Heaviness, Pressure Aggravating: Reports: None Alleviating: Reports: Oxygen Associated Signs and Symptoms: Denies: Diaphoresis, Nausea, Vomiting, Fever, Palpitations, Cough, Hemoptysis, Back pain, Abdominal pain, Dizziness, Short of air, Calf pain, Calf swelling Related History: Reports: Similar episode Related Surgical History: Reports: None History of Healthcare-Acquired Pneumonia: Reports: No AMI/ACS Risk Factors: Reports: Myocardial Infarction TAD Risk Factors: Reports: Hypertension Prior Care for this Complaint: Yes JVD Present: No Subcutaneous Emphysema Present: No Diminshed Breath Sounds: Yes Reproducible Chest Wall Pain: No Bilateral Pulses Present: Yes Unequal Pulses Noted: No If Risk Factors for AMI/ACS Consider: EKG Documents Reviewed: EMS records Care and Dx Studies Discussed With: Family Quality Indicators For Acute ID or Cardiac Chest Pain: EKG in 10min. Review of Systems - Review Of Systems Constitutional: Reports: No symptoms Eyes: Reports: No symptoms Ears, Nose, Mouth, Throat: Reports: No symptoms. Denies: Throat swelling Respiratory: Reports: No symptoms Cardiac: Reports: No symptoms GI: Reports: No symptoms : Reports: No symptoms Musculoskeletal: Reports: No symptoms Skin: Reports: No symptoms Neurological: Reports: No symptoms Endocrine: Reports: No symptoms Hematologic/Lymphatic: Reports: No symptoms All Other Systems: Reviewed and Negative Past Medical History - Past Medical History Previously Healthy: Yes Endocrine: Reports: None Cardiovascular: Reports: A-Fib Respiratory: Reports: None Hematological: Reports: None Gastrointestinal: Reports: None Genitourinary: Reports: None Neuro/Psych: Reports: None Musculoskeletal: Reports: None Cancer: Reports: None - Surgical History General Surgical History: Reports: None - Family History Family History: Reports: None - Social History Smoking Status: Current every day smoker, Heavy tobacco smoker Hx Substance Use: No Alcohol Screening: None Physical Exam - Physical Exam Appearance: Ill-appearing, Obese Ill-appearing: Mild Pain Distress: Mild Eyes: KING, EOMI, Conjunctiva clear ENT: Ears normal, Nose normal, Oropharynx normal Neck: Supple Respiratory: Airway patent, Breath sounds clear, Breath sounds equal, Respirations nonlabored Cardiovascular: RRR, Pulses normal, No rub, No murmur GI/: Soft, Nontender, No masses, Bowel sounds normal, No Organomegaly Musculoskeletal: Normal strength, ROM intact, No edema, No calf tenderness Skin: Warm, Dry, Normal color Neurological: Sensation intact, Motor intact, Reflexes intact, Cranial nerves intact, Alert, Oriented Psychiatric: Affect appropriate (Patient hypotensive BP [address] on O2 at 2 L per NC. Within 10 minutes patient asymptomatic and BP gradually improved to 120/60), Mood appropriate Interpretation - Radiology Interpretation Radiology Interpretation By: Radiologist Radiology Results: No acute changes - Lot Technician Time of Lot Technician Interpretation: 15:00 Rate: Normal Re-Evaluation - Re-Evaluation Time of Re-Evaluation: 18:15 Status: Improved Vital Signs Stable: Yes Appearance: NAD Lungs: Clear Skin: Warm and Dry Neuro: Alert and Oriented X3 CV: RRR Additional Comments: BS diminished bases Critical Care Note - Critical Care Note Total Time (mins): 60 Course - Course Hematology/Chemistry: 01/14/18 16:59 01/14/18 16:59 Orders, Labs, Meds: Lab Review 01/14/18 01/14/18 16:59 16:59 WBC 9.22 RBC 4.27 Hgb 12.8 Hct 37.9 MCV 88.8 MCH 30.0 MCHC 33.8 RDW Coeff of Maryjane 14.2 Plt Count 226 Immature Gran % (Auto) 0.3 Neut % (Auto) 61.9 Lymph % (Auto) 28.3 [place] % (Auto) 6.6 Eos % (Auto) 2.2 Baso % (Auto) 0.7 Immature Gran # (Auto) 0.0 Neut # (Auto) 5.7 Lymph # (Auto) 2.6 [place] # (Auto) 0.6 Eos # (Auto) 0.2 Baso # (Auto) 0.1 Sodium 142.1 Potassium 4.15 Chloride 107.7 H Carbon Dioxide 23.7 Anion Gap 14.85 BUN 20.2 H Creatinine 0.84 Estimated GFR (MDRD) 70.00 BUN/Creatinine Ratio 24.04 Glucose 182.8 H Calcium 9.77 Total Bilirubin 0.32 AST 34.2 ALT 75.0 H Alkaline Phosphatase 115.6 Troponin I 0.014 Total Protein 7.40 Albumin 3.93 Globulin 3.47 Albumin/Globulin Ratio 1.13 Orders Category Date Time Status EKG-(ED ONLY) Stat CARDIO 01/14/18 16:44 Completed IV [ED IV/MEDIPORT/POWERPORT] .ONCE EMERGENCY 01/14/18 16:45 Active OXYGEN [ED APPLY O2] .ONCE EMERGENCY 01/14/18 16:59 Active CBC W/ AUTO DIFF Stat LAB 01/14/18 16:59 Completed CMP [COMPREHENSIVE METABOLIC PANEL] Stat LAB 01/14/18 16:59 Completed TROPONIN I Stat LAB 01/14/18 16:59 Completed 0.9 % Sodium Chloride [Saline Flush] MEDS 01/14/18 16:45 Discontinued 1 syr IVF PRN PRN CHEST, 1V AP ONLY Stat RADS 01/14/18 16:44 Completed Medications Discontinued Medications Generic Name Dose Route Start Last Admin Trade Name Freq PRN Reason Stop Dose Admin Sodium Chloride 1 syr 01/14/18 16:45 Saline Flush IVF PRN PRN To flush IV Vital Signs: Temp Pulse Resp BP Pulse Ox 01/14/18 16:42 97.2 F L 98 H 16 87/68 L 96 KENJI Risk Score KENJI Risk Score: Risk Score Odds of by 30D 0 0.1 (0.1-0.2) 1 0.3 (0.2-0.3) 2 0.4 (0.3-0.5) 3 0.7 (0.6-0.9) 4 1.2 (1.0-1.5) 5 2.2 (1.9-2.6) 6 3.0 (2.5-3.6) 7 4.8 (3.8-6.1) Departure - Departure Time of Disposition: 18:40 Disposition: TSF SHORT-TRM HOSP Discharge Problem: Unstable angina pectoris, Type II diabetes mellitus Condition: Stable Pt referred to PMD for follow-up: Yes IPMP verified?: No Additional Instructions: Referral to [facility] Dr Morgan for further evaluation and tx Allergies/Adverse Reactions: Allergies adhesive Adverse Reaction (Verified 01/14/18 16:50) bandaids Adverse Reaction (Uncoded 07/29/17 16:48) Home Medications: Ambulatory Orders Cyclobenzaprine HCl [Flexeril] 10 mg PO DAILY PRN 07/29/17 Diltiazem HCl [Diltiazem 24Hr Cd] 120 mg PO DAILY 07/29/17 Gabapentin [Neurontin] 600 mg PO DIRECTED 07/29/17 Levothyroxine Sodium [Synthroid] 150 mcg PO DAILY 07/29/17 Metoprolol Succinate [Toprol Xl] 100 mg PO DAILY 07/29/17 Amlodipine Besylate [Norvasc] 5 mg PO DAILY 01/14/18 Aspirin [Aspir-Low] 81 mg PO DAILY 01/14/18 Clonazepam 0.5 mg PO BID PRN 01/14/18 Esomeprazole Magnesium [Nexium] 40 mg PO DAILY 01/14/18 Insulin Glargine,Hum.rec.anlog [Lantus Solostar] 25 unit SQ INSULIN EVENING Insulin Glargine,Hum.rec.anlog [Lantus Solostar] 30 unit SQ INSULIN MORNING Isosorbide Mononitrate [Imdur] 30 mg PO DAILY 01/14/18 Levomefolate/B6/B12/Algal Oil [Metanx Capsule] 1 each PO DAILY 01/14/18 Lisinopril [Zestril] 5 mg PO DAILY 01/14/18 Metformin HCl 500 mg PO TID 01/14/18 Metoprolol Succinate [Toprol Xl] 25 mg PO DAILY 01/14/18 Nicotine 14 mg [Nicoderm 14 mg] 1 patch TD DAILY 01/14/18 Nitroglycerin [Nitrostat] 0.4 mg SL Q5MIN X 3 DOSES PRN 01/14/18 Simvastatin 20 mg PO DAILY 01/14/18 Ticagrelor [Brilinta] 90 mg PO BID 01/14/18 Disposition Discussed With: Patient, Family Additional Information: after evla, oxygen applied and o2 sat, bp improved pain resolved Discussed concerns with patient regarding her chest discomfort and need for additional evaluation. Attempted to speak with Commercial Kitchen Service Technician and connected to ER - Dr Langley Accepted patient in transfer Patient concurred with transferred ED Physician Progress Note ED Physician Progress Note: []
[2018-01-14 16:48] VITALS: BP 87/68; TEMP 97.2; BMI 41.4
--- NOTE | 2018-01-15 07:31 | DI ---
EXAM: CHEST FRONTAL VIEW HISTORY: Chest pain. COMPARISON: None FINDINGS: Heart size approaching upper limit normal. Right port catheter ends over the superior katiana a cava. No acute infiltrates are seen. No vascular congestion. There is no consolidation, visible p leural fluid or pneumothorax. Bones reveal no acute fracture. IMPRESSION: No acute cardiopulmonary process.
== END 2018-01-14 18:54 | disposition short-term general hospital (02) ==
LOC: ED 16:42
DX: I23.7 Postinfarction angina (principal); I10 Essential (primary) hypertension; E11.9 Type 2 diabetes mellitus without complications; Z72.0 Tobacco use; Z95.5 Presence of coronary angioplasty implant and graft; Z98.890 Other specified postprocedural states; Z79.899 Other long term (current) drug therapy; Z79.4 Long term (current) use of insulin
CPT/HCPCS: 36415; 80053; 84484; 85025; 93005; 93010; 99285

== ENCOUNTER 2018-01-22 13:41 | Outpatient (RCR) ==
[2018-01-22 14:44] VITALS: TEMP 98.3; BMI 40.2
[2018-01-28 13:33] VITALS: BP 112/54
== END 2018-01-31 23:59 ==
LOC: CAR.REHAB 13:41
PROVIDERS: ATTEND Internal Medicine
DX: Z95.5 Presence of coronary angioplasty implant and graft (principal)
CPT/HCPCS: 93798

== ENCOUNTER 2018-02-01 09:04 | Outpatient (RCR) ==
[2018-03-03 13:42] VITALS: BP 132/64
== END 2018-03-03 23:59 ==
LOC: CAR.REHAB 09:04
PROVIDERS: ATTEND Internal Medicine
DX: Z95.5 Presence of coronary angioplasty implant and graft (principal)
CPT/HCPCS: 93798

== ENCOUNTER 2018-05-01 15:06 | Emergency (ER) ==
[2018-05-01 15:11] VITALS: BP 107/75; TEMP 97.6; BMI 40.1
[2018-05-01] MEDS ORDERED: MORPHINE 2 MG/ML SYRINGE IVP STA (15:18)
[2018-05-01] MEDS ORDERED: SODIUM CHLORIDE 1,000 ML IV STA (15:18)
[2018-05-01] MEDS ORDERED: ZOFRAN 4 MG/2 ML IVP STA (15:18)
[2018-05-01] MEDS ORDERED: ASPIRIN CHEWABLE PO STA (15:51)
[2018-05-01] MEDS ORDERED: ASPIRIN CHEWABLE ONE (15:53)
--- NOTE | 2018-05-01 16:12 | ED.PDOC ---
General ED Provider: Dr. KISHORE BRICE Chief Complaint: Chest Pain Stated Complaint: Patient is a 57 year old female who comes to the ER with Chest pain That started 15 min ago. She has a history of CAD and is on Nitroglycerine PRN. Took 2 tabe and pain went from 8-6/10. She has associated Shortness of breath and nausea with some diaphroesis. Last had 2 stents 2 months ago. pain started while driving car. Time Seen by Physician: 15:15 Mode of Arrival: Wheelchair Information Source: Patient Exam Limitations: No limitations Primary Care Provider: GEORGE TSAI Nursing and Triage Documentation Reviewed and Agree: Yes Does patient meet sepsis criteria?: No If yes, has appropriate treatment been initiated?: No System Inflammatory Response Syndrome: Not Applicable Sepsis Protocol: For patient's 13 years and over: Temp is 96.8 and below OR 101 and greater Pulse >90 BPM Resp >20/minute Acutely Altered Mental Status Are patient's symptoms suggestive of a new infection, such as: -Pneumonia -Skin, Soft Tissue -Endocarditis -UTI -Bone, Joint Infection -Implantable Device -Acute Abdominal Infection -Wound Infection -Meningitis -Blood Stream Catheter Infection -Unknown Cardiovascular Complaint Exam - Chest Pain Complaint/Exam Onset: Sudden Duration: 10-15 min Symptoms Are: Still present Timing: Constant Length of Chest Pain Episodes: since onset Initial Severity: Severe Current Severity: Moderate Location: Reports: Midsternal Pain Radiates: Reports: None Character: Reports: Aching, Tightness, Heaviness Aggravating: Reports: None Alleviating: Reports: Nitro (only partially ) Associated Signs and Symptoms: Reports: Diaphoresis, Nausea, Short of air Related History: Reports: Similar episode Related Surgical History: Reports: PTCA/Stent (4 months ago) Prior Care for this Complaint: No Recent Stress Test: No Reproducible Chest Wall Pain: No Bilateral Pulses Present: No If Risk Factors for AMI/ACS Consider: EKG, Cardiac Enzymes Differential Diagnoses: Acute WI, ACS, Stable Angina Quality Indicators For Acute WI or Cardiac Chest Pain: EKG in 10min., ASA if indicated Review of Systems - Review Of Systems Constitutional: Reports: Diaphoresis Respiratory: Reports: Short of air Cardiac: Reports: Chest pain GI: Reports: Nausea Neurological: Reports: Anxiety All Other Systems: Reviewed and Negative Past Medical History - Past Medical History Previously Healthy: Yes Endocrine: Reports: None Cardiovascular: Reports: A-Fib Respiratory: Reports: None Hematological: Reports: None Gastrointestinal: Reports: None Genitourinary: Reports: None Neuro/Psych: Reports: None Musculoskeletal: Reports: None Cancer: Reports: None Last Menstrual Period: n/a - Surgical History General Surgical History: Reports: None - Family History Family History: Reports: None - Social History Smoking Status: Current every day smoker, Heavy tobacco smoker Hx Substance Use: No Alcohol Screening: None Physical Exam - Physical Exam Appearance: Ill-appearing, Obese Ill-appearing: Mild Pain Distress: Moderate Neck: Supple Respiratory: Airway patent, Breath sounds clear, Breath sounds equal, Respirations nonlabored Cardiovascular: RRR, Pulses normal, No rub, No murmur GI/: Soft, Nontender Musculoskeletal: Normal strength Skin: Warm Neurological: Motor intact, Alert, Oriented Psychiatric: Anxious Interpretation - EKG Interpretation Time of EKG #1: 15:12 Rate: Normal Rhythm: Sinus Ectopy: None Flasher: NL ST Segment: Normal Interpretation: Sinus Tachycarida, Septal infact age unknown. Re-Evaluation - Re-Evaluation Time of Re-Evaluation: 16:16 Status: Improved Vital Signs Stable: Yes Pain Level: 0/10 after morphine Appearance: NAD Physician Notification - Case Discussed Physician Notified: Dr. Islas Time of Notification: 16:37 Critical Care Note - Critical Care Note Total Time (mins): 45 Course - Course Hematology/Chemistry: 05/01/18 15:28 05/01/18 15:28 Orders, Labs, Meds: Lab Review 05/01/18 05/01/18 15:28 15:28 WBC 9.06 RBC 4.72 Hgb 13.0 Hct 40.6 MCV 86.0 MCH 27.5 MCHC 32.0 RDW Coeff of Maryjane 14.3 Plt Count 235 Immature Gran % (Auto) 0.4 Neut % (Auto) 72.4 Lymph % (Auto) 18.8 Porter % (Auto) 5.8 Eos % (Auto) 1.9 Baso % (Auto) 0.7 Immature Gran # (Auto) 0.0 Neut # (Auto) 6.6 Lymph # (Auto) 1.7 Porter # (Auto) 0.5 Eos # (Auto) 0.2 Baso # (Auto) 0.1 Sodium 139.8 Potassium 4.38 Chloride 108.2 H Carbon Dioxide 22.3 Anion Gap 13.68 BUN 18.2 H Creatinine 0.79 Estimated GFR (MDRD) 75.00 BUN/Creatinine Ratio 23.03 Glucose 174.9 H Calcium 9.47 Total Bilirubin 0.36 AST 36.4 H ALT 41.8 H Alkaline Phosphatase 104.5 Total Creatine Kinase 39.9 Troponin I < 0.012 Total Protein 7.32 Albumin 4.03 Globulin 3.29 Albumin/Globulin Ratio 1.22 Orders Category Date Time Status EKG-(ED ONLY) Stat CARDIO 05/01/18 15:18 Completed ED APPLY O2 .ONCE EMERGENCY 05/01/18 15:18 Active ED GREEN PLUMBER APPLIED .ONCE EMERGENCY 05/01/18 15:18 Active ED IV/MEDIPORT/POWERPORT .ONCE EMERGENCY 05/01/18 15:18 Active CBC W/ AUTO DIFF Stat LAB 05/01/18 15:28 Completed COMPREHENSIVE METABOLIC PANEL Stat LAB 05/01/18 15:28 Completed CREATINE KINASE Stat LAB 05/01/18 15:28 Completed TROPONIN I Stat LAB 05/01/18 15:28 Completed 0.9 % Sodium Chloride [Saline Flush] MEDS 05/01/18 15:18 Ordered 1 syr IVF PRN PRN Aspirin [Aspirin Chewable] MEDS 05/01/18 15:53 Discontinued 243 mg .ROUTE .STK-MED ONE Aspirin [Aspirin Chewable] MEDS 05/01/18 15:51 Discontinued 243 mg PO ONCE STA Morphine Sulfate [Morphine 2 mg/ml Syringe] MEDS 05/01/18 15:18 Discontinued 2 mg IVP ONCE STA Ondansetron HCl/Pf [Zofran 4 mg/2 ml] MEDS 05/01/18 15:18 Discontinued 4 mg IVP ONCE STA Sodium Chloride 0.9% [Sodium Chloride] 1,000 ml MEDS 05/01/18 15:18 Active IV 125 mls/hr CHEST, 1V AP ONLY Stat RADS 05/01/18 15:18 Taken Medications Generic Name Dose Route Start Last Admin Trade Name Freq PRN Reason Stop Dose Admin Sodium Chloride 1,000 mls @ 125 mls/hr 05/01/18 15:18 05/01/18 15:29 Sodium Chloride IV 05/01/18 23:17 125 mls/hr .Q8H STA Administration Sodium Chloride 1 syr 05/01/18 15:18 05/01/18 15:26 Saline Flush IVF 1 syr PRN PRN Administration To flush IV Discontinued Medications Generic Name Dose Route Start Last Admin Trade Name Todd PRN Reason Stop Dose Admin Aspirin 243 mg 05/01/18 15:51 05/01/18 15:55 Aspirin Chewable PO 05/01/18 15:52 243 mg ONCE STA Administration Morphine Sulfate 2 mg 05/01/18 15:18 05/01/18 15:26 Morphine 2 Mg/Ml Syringe IVP 05/01/18 15:19 2 mg ONCE STA Administration Ondansetron HCl 4 mg 05/01/18 15:18 05/01/18 15:25 Zofran 4 Mg/2 Ml IVP 05/01/18 15:19 4 mg ONCE STA Administration Vital Signs: Temp Pulse Resp BP Pulse Ox 05/01/18 15:07 97.6 F 105 H 24 107/75 96 KENJI Risk Score Age >/= 65: No >/= 3 CAD Risk Factors: Yes Known CAD (Stenosis >/= 50%): Yes ASA Use in Past 7 Days: Yes Severe Angina (>/= 2 episodes in 24 hours): Yes EKG ST Changes >/= 0.5mm: No Postive Cardiac Marker: No KENJI Total Score: 4 KENJI Risk Score: Risk Score Odds of by 30D 0 0.1 (0.1-0.2) 1 0.3 (0.2-0.3) 2 0.4 (0.3-0.5) 3 0.7 (0.6-0.9) 4 1.2 (1.0-1.5) 5 2.2 (1.9-2.6) 6 3.0 (2.5-3.6) 7 4.8 (3.8-6.1) Departure - Departure Time of Disposition: 16:37 Disposition: TSF SHORT-TRM HOSP Discharge Problem: Angina at rest Condition: Fair Pt referred to PMD for follow-up: No IPMP verified?: No Allergies/Adverse Reactions: Allergies adhesive Adverse Reaction (Verified 01/14/18 16:50) bandaids Adverse Reaction (Uncoded 07/29/17 16:48) Home Medications: Ambulatory Orders Cyclobenzaprine HCl [Flexeril] 10 mg PO DAILY PRN 07/29/17 Diltiazem HCl [Diltiazem 24Hr Cd] 120 mg PO DAILY 07/29/17 Gabapentin [Neurontin] 600 mg PO DIRECTED 07/29/17 Levothyroxine Sodium [Synthroid] 150 mcg PO DAILY 07/29/17 Metoprolol Succinate [Toprol Xl] 100 mg PO DAILY 07/29/17 Amlodipine Besylate [Norvasc] 5 mg PO DAILY 01/14/18 Aspirin [Aspir-Low] 81 mg PO DAILY 01/14/18 Clonazepam 0.5 mg PO BID PRN 01/14/18 Esomeprazole Magnesium [Nexium] 40 mg PO DAILY 01/14/18 Insulin Glargine,Hum.rec.anlog [Lantus Solostar] 25 unit SQ INSULIN EVENING Insulin Glargine,Hum.rec.anlog [Lantus Solostar] 30 unit SQ INSULIN MORNING Isosorbide Mononitrate [Imdur] 30 mg PO DAILY 01/14/18 Levomefolate/B6/B12/Algal Oil [Metanx Capsule] 1 each PO DAILY 01/14/18 Lisinopril [Zestril] 5 mg PO DAILY 01/14/18 Metformin HCl 500 mg PO TID 01/14/18 Metoprolol Succinate [Toprol Xl] 25 mg PO DAILY 01/14/18 Nicotine 14 mg [Nicoderm 14 mg] 1 patch TD DAILY 01/14/18 Nitroglycerin [Nitrostat] 0.4 mg SL Q5MIN X 3 DOSES PRN 01/14/18 Simvastatin 20 mg PO DAILY 01/14/18 Ticagrelor [Brilinta] 90 mg PO BID 01/14/18
--- NOTE | 2018-05-02 03:33 | DI ---
EXAM: Chest, single view 05/01/2018 HISTORY: Chest pain COMPARISON: 01/14/2018 FINDINGS / IMPRESSION: Cardiomediastinal contours are stable. Right chest port stable. This appear s well positioned. Basilar interstitial prominence may relate to atelectasis or pneumonitis there is no pulmonary consol idation. No pleural effusion or pneumothorax.
== END 2018-05-01 17:15 | disposition short-term general hospital (02) ==
LOC: ED 15:06
DX: R07.9 Chest pain, unspecified (principal); R06.02 Shortness of breath; R11.0 Nausea; Z98.61 Coronary angioplasty status; F41.9 Anxiety disorder, unspecified; I20.9 Angina pectoris, unspecified
CPT/HCPCS: 36415; 80053; 82550; 84484; 85025; 93005; 93010; 96374; 96375; 99285

== ENCOUNTER 2018-05-21 13:00 | Outpatient (RCR) ==
--- NOTE | 2018-05-12 16:18 | RS.OPPTEV2 ---
Date of Note: 05/12/18 Visit #: 1 Number of visits approved by Insurance: NA Date of Evaluation: 05/12/18 Payer Source: Insurance ([facility]) Date of Onset/Injury/Change in Status: 04/05/18 Treatment Diagnosis: Left knee pain, left knee stiffness, gait abnormality History of Condition/Mechanism of Injury:: Patient states she fell on 04/05/18 and sprained her left ankle. States the left ankle got better, but she developed edema in the left knee. States she has had no other injury, since the fall, that would account for the knee swelling. Prior Level of Function.....Patient was independent with: ADL's, Self Care, Caregiving, Ambulation/Mobility, Community Integration/Access Level of Function: She no longer is able to work and is on disability. Functional Limitations: Sitting, Standing, Bending, Squatting, Ambulation, Community Access/Integration Current Subjective/complaints:: Patient reports left knee pain with prolonged standing and walking. States she was icing the knee when it initially had swelling, but she has not lately. States prior to the knee pain, she was walking without an assistive device. States she has been walking with a straight cane sine the knee swelling and pain. She denies popping or the feeling of instability in the left knee. No new medications were given for this left knee. She denies any prior issues with either knee. Treatment Side (optional): Left *Precautions: Allergic to adhesives Medical History Medical History: Hypertension, Diabetes, Arthritis, Cancer (ovarian) Medical History Comments:: History of fractured right ankle Surgical History: Hysterectomy Smoking Status: Former smoker Hx Home Medications: cyclobenzaprine, metformin,levothyroxine,gabaentin, hydrocodone/acetaminophen, isosorbide mononitrate, clonazepam,metoprolol, amlodipine,amitriptyline,cartia XT, simvastatin,lisinopril, oxycodone/ acetaminophen Patient's Goals: Her goal is to get relief of left knee pain and return to her prior level of function. Pain Assessment - Pain Description Pain Location: left knee joint Current Pain Intensity: 1/10 Worst Pain Intensity: 10/10 Functional Outcome Measure LE Functional Scale: 21 (21/80=73.75% impairment) - G Codes & Severity Modifier G Codes & Modifier: NA Source of G Code score: NA Observation - Observation Inspection: Mrs. Brice presents to therapy with a knee imobilizer brace on the LE, which has dropped down to her lower leg. Left knee presents with no discoloration or scarring. Demonstrates slight swelling at the superior pole of the patella on the left knee. Girth Measurement Lower: Inferior pole of patella: *Left 37.5 cm, right 37 cm. Mid patella: *Left 42 cm, Right 41.5 cm. Superior pole of patella: *Left 43 cm , right 42.75 cm Gait - Gait Pattern Gait Comments: Patient ambulates with a straight cane in the right hand, with decreased stance on the left LE, decreased heelstrike, and decreased left hip and knee flexion. - Left Knee ROM Left Knee Extension: full extension Left Knee Flexion: 114 (degrees AROM) Knee ROM Limitations: Soft Tissue Tightness, Pain - Right Knee ROM Right Knee Extension: full extension Right Knee Flexion: 139 (degrees AROM) - Left Knee Strength Left Knee Extension: 4+ Good + Left Knee Flexion: 4+ Good + Comments: Left hip 4+/5. - Right Knee Strength Right Knee Extension: 4- Good- Right Knee Flexion: 4 Good Comments: Left hip 4 to 4+/5. - Special Tests Knee Anterior Drawer Test: Negative Left, Negative Right Knee Posterior Drawer Test: Negative Left, Negative Right Knee Valgus Stress Test: Negative Left, Negative Right Knee Varus Stress Test: Negative Left, Negative Right Knee Afshan Test: Negative Left, Negative Right Patella Apprehension Test: Negative Left, Negative Right Patellar Compression Test: Negative Right, Positive Left Palpation Comments:: Patient reports tenderness with compression of the left patella, along the medial joint line, and over the quad tendon. She denies pain with mobilization of the left patella. Sensation - Sensation Comments: Impaired bilateral LE sensation due to neuropathy. - Treatment Modality: Ultrasound Parameters/Method Applied: .8 w/cm 2 continous X 10 mins to the left knee, with emphasis to the medial joint line and along superior/medial, and lateral border of the patella. Patient Position: Supine Interventions - Exercise/Activities/Manual Therapy Exercises/Activities: Patient instructed to perform ankle pumps and knee flexion /extension in a pain free range. Advised to ice the knee at least at the end of the day. Advised to avoid twisting on the left LE with the foot planted. Total minutes of Exercise: 7 mins Manual Therapy: NA HOME EXERCISE PROGRAM: AP's and active knee flex/ext - Charges Timed Code Treatment Minutes: 15 mins Total Treatment Time: 48 mins Procedures billed for this date of service:: KARSTEN Frost, EVALUATION COMPLEXITY LEVEL EVALUATION COMPLEXITY LEVEL: HISTORY: High (no prior knee issues, DM, obesity, Neuropathy, HTN, hx cardiac stents), EXAM OF BODY SYSTEMS: Medium (left knee AROM, MS, joint stability,), CLINICAL PRESENTATION: Low, CLINICAL DECISION MAKING: Low Assessment Assessment: Mrs. Brice presents to therapy with a diagnosis of pain in the left knee. She reports pain with prolonged standing and walking. She exhibits .5 cm swelling throughout the left knee, compared to the right. Left knee AROM and muscle strength are limited. She has pain with compression of the patella and tenderness along the medial joint line and the quadriceps tendon. No hypermobility of the left knee joint is noted. She demonstrates potential to benefit from modalities and exercises to regain pain-free AROM of the left knee. Patient Education: Education of diagnosis, Body/Joint mechanics, Home Exercise Program, Activity Modification, Education of Plan of Care Rehab Potential: Good Short Term Goals Goal #1: Pt independent and compliant with HEP. Goal to be met by: 05/26/18 Goal #2: Left quad strength improved to 4+/5. Goal to be met by: 05/26/18 Goal #3: Pt to report minimal to no tenderness with palpation to the left knee. Goal to be met by: 05/26/18 Goal #4: Pt able to amb. household distances without cane w/ minimal knee pain. Goal to be met by: 05/26/18 Squad Boss Goals Goal #1: Pt knows HEP and to continue ex's to maintain functional level at D/C. Goal to be met by: 06/16/18 Goal #2: Score on LE functional scale improved to 50/80. Goal to be met by: 06/16/18 Goal #3: Left knee AROM WFL's to perform all ADL's. Goal to be met by: 06/16/18 Goal #4: Pt able to amb. community distances w/o assistive device with good safety. Goal to be met by: 06/16/18 Plan - Treatment to be Provided Procedures: Therapeutic Exercises, Therapeutic Activity, Gait Training, Neuromuscular Rehab, Patient Education Modalities: Electrical Stimulation, Ultrasound/Phonophoresis, Class IV Laser, Cryotherapy - Treatment Plan Frequency: 2-3 X week Duration: 3 weeks Dates of Senior Care Goals: 06/16/18 Expiration date of current Insurance Approval:: NA - Treatment Code (1) Knee pain Code(s): M25.569 - PAIN IN UNSPECIFIED KNEE Qualifiers: Chronicity: acute Laterality: left Qualified Code(s): M25.562 - Pain in left knee (2) Knee stiffness Qualifiers: Laterality: left Qualified Code(s): M25.662 - Stiffness of left knee, not elsewhere classified (3) Knee effusion Qualifiers: Laterality: left Qualified Code(s): M25.462 - Effusion, left knee (4) Fall Code(s): W19.XXXA - UNSPECIFIED FALL, INITIAL ENCOUNTER Qualifiers: Encounter type: subsequent encounter Qualified Code(s): W19.XXXD - Unspecified fall, subsequent encounter (5) Gait abnormality Code(s): R26.9 - UNSPECIFIED ABNORMALITIES OF GAIT AND MOBILITY Comments: R26.9
--- NOTE | 2018-05-14 14:17 | RS.OPPTDN ---
Subjective Date of Note: 05/14/18 Visit #: 2 Number of visits approved by Insurance: NA Date of Evaluation: 05/12/18 Payer Source: Insurance ([facility]) Treatment Diagnosis: Left knee pain, left knee stiffness, gait abnormality Current Subjective/complaints:: Ms. Brice states she was not sore after the first therapy session. States she has no problems going without the immobilizer on the left knee at home. States she even goes without the cane at home. States she may go see if she can fine an CAROLINE wrap type compression sleeve for the knee instead of the immobilizer. *Precautions: Allergic to adhesives - Treatment Modality: Ultrasound Parameters/Method Applied: .9 w/cm2 continuous X 10 mins throughout anterior left knee joint. Patient Position: Supine Interventions - Exercise/Activities/Manual Therapy Exercises/Activities: Received passive ROM to left knee flex/extension. Presents with consistent popping of the patella with knee flexion and extension. Performed SAQ with 1.5 # wt in short range to avoid pain and popping , 2 sets of 10 reps. Performed QS, SLR with assistance and HS curls with red theraband. All 2 sets of 10 reps. I explained that she could go without the immobilizer and maybe try a compression sleeve for the knee for comfort if she felt she needed something on the knee. Total minutes of Exercise: X 18 mins Manual Therapy: NA HOME EXERCISE PROGRAM: AP's and active knee flex/ext - Objective Findings Observations,measurements,etc.: Patient ambulates with straight cane and immobilizer to the left LE. The immobilizer has slipped down off the knee joint. Denies pain today with compression to the left patella. - Charges Timed Code Treatment Minutes: 28 mins Total Treatment Time: 32 mins Procedures billed for this date of service:: EX, US Assessment: Patient denies tenderness today with compression to the patella. She requires assistance with SLR's and SAQ range has to be limited ~50% due to pain and popping near end range extension. She demonstates potential to get relief of knee pain with progressed exercises and continued modalities to reduce inflammation. Patient Education: Education of diagnosis, Body/Joint mechanics, Home Exercise Program, Education of Plan of Care Short Term Goals Goal #1: Pt independent and compliant with HEP. Goal to be met by: 05/26/18 Goal #2: Left quad strength improved to 4+/5. Goal to be met by: 05/26/18 Goal #3: Pt to report minimal to no tenderness with palpation to the left knee. Goal to be met by: 05/26/18 Progress towards Goal:: Partially Met (first day to deny tenderness, will meet if consistent) Goal #4: Pt able to amb. household distances without cane w/ minimal knee pain. Goal to be met by: 05/26/18 Progress towards Goal:: Progressing Public Health Educator Goals Goal #1: Pt knows HEP and to continue ex's to maintain functional level at D/C. Goal to be met by: 06/16/18 Goal #2: Score on LE functional scale improved to 50/80. Goal to be met by: 06/16/18 Goal #3: Left knee AROM WFL's to perform all ADL's. Goal to be met by: 06/16/18 Goal #4: Pt able to amb. community distances w/o assistive device with good safety. Goal to be met by: 06/16/18 Plan Dates of Public Health Educator Goals: 06/16/18 Expiration date of current Insurance Approval:: NA PLAN: Progress exercises as tolerated and continue modalities to reduce swelling.
--- NOTE | 2018-05-17 15:13 | RS.OPPTDN ---
Subjective Date of Note: 05/17/18 Visit #: 3 Number of visits approved by Insurance: NA Date of Evaluation: 05/12/18 Payer Source: Insurance ([facility]) Treatment Diagnosis: Left knee pain, left knee stiffness, gait abnormality Current Subjective/complaints:: States she got a compression sleeve for the left knee as recommended. Following treatment today, she states the left knee does not really hurt, just feels stiff. *Precautions: Allergic to adhesives - Treatment Modality: Ultrasound Parameters/Method Applied: .9 w/cm2 continuous X 10 mins to anterior region of right knee with focus on medial to the patella. Patient Position: Supine Interventions - Exercise/Activities/Manual Therapy Exercises/Activities: Performed exercises of AP's, SLR's, QS, heelslides, isometric hip IR with ball between feet, and isometric hip adduction in hooklying. Total minutes of Exercise: 15 mins Manual Therapy: NA HOME EXERCISE PROGRAM: AP's and active knee flex/ext - Objective Findings Observations,measurements,etc.: Ambulates without assistive device today. - Charges Timed Code Treatment Minutes: 15 mins Total Treatment Time: 25 mins Procedures billed for this date of service:: US, EX Assessment: Patient ambulating without cane today and using a compression sleeve instead of immobilizer, as recommended. Tolerates exercises well. Expresses anxiety over approaching heart cath this month. Patient Education: Education of diagnosis, Body/Joint mechanics, Home Exercise Program Short Term Goals Goal #1: Pt independent and compliant with HEP. Goal to be met by: 05/26/18 Goal #2: Left quad strength improved to 4+/5. Goal to be met by: 05/26/18 Goal #3: Pt to report minimal to no tenderness with palpation to the left knee. Goal to be met by: 05/26/18 Progress towards Goal:: Partially Met Comments:: no tenderness reported Goal #4: Pt able to amb. household distances without cane w/ minimal knee pain. Goal to be met by: 05/26/18 Progress towards Goal:: Progressing [employer] Administrator Goals Goal #1: Pt knows HEP and to continue ex's to maintain functional level at D/C. Goal to be met by: 06/16/18 Goal #2: Score on LE functional scale improved to 50/80. Goal to be met by: 06/16/18 Goal #3: Left knee AROM WFL's to perform all ADL's. Goal to be met by: 06/16/18 Progress towards goal: Progressing Goal #4: Pt able to amb. community distances w/o assistive device with good safety. Goal to be met by: 06/16/18 Progress towards goal: Progressing Plan Dates of Senior Care Goals: 06/16/18 Expiration date of current Insurance Approval:: NA PLAN: Continue ultrasound and progress stability and ROM exercises.
--- NOTE | 2018-05-19 15:37 | RS.OPPTDN ---
Subjective Date of Note: 05/19/18 Visit #: 4 Number of visits approved by Insurance: NA Date of Evaluation: 05/12/18 Payer Source: Insurance ([facility]) Treatment Diagnosis: Left knee pain, left knee stiffness, gait abnormality Current Subjective/complaints:: Mrs. Brice states she has been ambulating without the cane. States she is working on the exercises as home as instructed. She continues to use the compression sleeve for the left knee and states it stays in place well. States she is not have as much pain in the left knee. Reports minimal knee pain with ambulation. *Precautions: Allergic to adhesives - Treatment Modality: Ultrasound Parameters/Method Applied: .9 w/cm2 continous X 10 mins to the anterior region of the left knee, with emphasis on the medial joint line and quad tendon. Patient Position: Supine Interventions - Exercise/Activities/Manual Therapy Exercises/Activities: Performed mat exercises of SAQ's no resistance, QS, SLR's , HS sets, isometrics hip adduction and IR. Assisted with knee flexion/ extension AAROM. Total minutes of Exercise: 14 mins Manual Therapy: NA HOME EXERCISE PROGRAM: AP's and active knee flex/ext - Objective Findings Observations,measurements,etc.: Reports no pain with compression to the patella. Ambulates without assistive device, with slight decreased stance on left LE. - Charges Timed Code Treatment Minutes: 26 mins Total Treatment Time: 32 mins Procedures billed for this date of service:: US, EX Assessment: Patient reports she is ambulating without the cane. States knee pain has improved. Patient demonstrates compliance with HEP?: Yes Short Term Goals Goal #1: Pt independent and compliant with HEP. Goal to be met by: 05/26/18 Progress towards Goal:: Progressing Goal #2: Left quad strength improved to 4+/5. Goal to be met by: 05/26/18 Progress towards Goal:: Progressing Goal #3: Pt to report minimal to no tenderness with palpation to the left knee. Goal to be met by: 05/26/18 Progress towards Goal:: Partially Met Goal #4: Pt able to amb. household distances without cane w/ minimal knee pain. Goal to be met by: 05/26/18 Progress towards Goal:: Met It Audit Manager Goals Goal #1: Pt knows HEP and to continue ex's to maintain functional level at D/C. Goal to be met by: 06/16/18 Goal #2: Score on LE functional scale improved to 50/80. Goal to be met by: 06/16/18 Goal #3: Left knee AROM WFL's to perform all ADL's. Goal to be met by: 06/16/18 Progress towards goal: Progressing Goal #4: Pt able to amb. community distances w/o assistive device with good safety. Goal to be met by: 06/16/18 Progress towards goal: Progressing Plan Dates of It Audit Manager Goals: 06/16/18 Expiration date of current Insurance Approval:: NA PLAN: Progress exercises to regain pain-free AROM and gait.
--- NOTE | 2018-05-21 13:54 | RS.OPPTDN ---
Subjective Date of Note: 05/21/18 Visit #: 5 Number of visits approved by Insurance: NA Date of Evaluation: 05/12/18 Payer Source: Insurance ([facility]) Treatment Diagnosis: Left knee pain, left knee stiffness, gait abnormality Current Subjective/complaints:: Mrs. Brice states pain is much better. States she is not having much knee pain now. Reports not needing to wear the brace much. Agrees that it would be good to stop therapy now, since she is doing better and she has a limited number of therapy visits per year. *Precautions: Allergic to adhesives Pain Assessment - Pain Description Pain Description: minimal pain Current Pain Intensity: not quantified - Treatment Modality: Ultrasound Parameters/Method Applied: .9 w/cm2 continuous X 12 mins to left knee joint , with emphasis on medial joint line and superior to the patella. Patient Position: Supine Interventions - Exercise/Activities/Manual Therapy Exercises/Activities: Reviewed HEP and give pictures of SLR and SAQ's. Patient now performing SAQ's with sporadic "click" and no pain. Advised to continue ex' s and if necessary, limit the range to avoid pain or popping. Manual Therapy: NA HOME EXERCISE PROGRAM: AP's and active knee flex/ext - Objective Findings Observations,measurements,etc.: Mrs. Brice ambulates into the department without an assistive device with nearly symmetrical stance phase and knee flexion with swing phase. Demonstrates quad strength 4+/5, HS 4+/5. AROM of left knee -2 to 127 degrees flexion. - Charges Timed Code Treatment Minutes: 19 mins Total Treatment Time: 26 mins Procedures billed for this date of service:: US, EX Assessment: Patient reports much improved knee pain. She is walking without an assistive device consistently and also able to go without her knee support. Short Term Goals Goal #1: Pt independent and compliant with HEP. Goal to be met by: 05/26/18 Progress towards Goal:: Met Goal #2: Left quad strength improved to 4+/5. Goal to be met by: 05/26/18 Progress towards Goal:: Met Goal #3: Pt to report minimal to no tenderness with palpation to the left knee. Goal to be met by: 05/26/18 Progress towards Goal:: Met Goal #4: Pt able to amb. household distances without cane w/ minimal knee pain. Goal to be met by: 05/26/18 Progress towards Goal:: Met Shelter Goals Goal #1: Pt knows HEP and to continue ex's to maintain functional level at D/C. Goal to be met by: 06/16/18 Progress towards goal: Met Goal #2: Score on LE functional scale improved to 50/80. Goal to be met by: 06/16/18 Goal #3: Left knee AROM WFL's to perform all ADL's. Goal to be met by: 06/16/18 Progress towards goal: Met Goal #4: Pt able to amb. community distances w/o assistive device with good safety. Goal to be met by: 06/16/18 Progress towards goal: Met Plan Dates of Product Scientist Goals: 06/16/18 Expiration date of current Insurance Approval:: NA PLAN: Plan to hold therapy today due to her minimal left knee pain. Mrs. Brice agrees with plan as she just has a certain amount of therapy visits available per year.
== END 2018-06-03 23:59 | disposition short-term general hospital (02) ==
PROVIDERS: ATTEND Family Medicine
DX: M25.562 Pain in left knee (principal)

== ENCOUNTER 2018-06-29 12:41 | Outpatient (RCR) ==
[2018-06-29 13:24] VITALS: TEMP 208; BMI 38.5
[2018-06-30 13:29] VITALS: BP 114/58
== END 2018-07-01 23:59 ==
LOC: CAR.REHAB 12:41
PROVIDERS: ATTEND Internal Medicine
DX: I25.10 Atherosclerotic heart disease of native coronary artery without angina pectoris (principal); Z95.5 Presence of coronary angioplasty implant and graft
CPT/HCPCS: 93798

== ENCOUNTER 2018-07-02 06:42 | Outpatient (RCR) ==
[2018-07-30 13:34] VITALS: BP 124/58
== END 2018-08-01 23:59 ==
LOC: CAR.REHAB 06:42
PROVIDERS: ATTEND Internal Medicine
DX: I25.10 Atherosclerotic heart disease of native coronary artery without angina pectoris (principal); Z95.5 Presence of coronary angioplasty implant and graft
CPT/HCPCS: 93798

== ENCOUNTER 2018-08-02 08:37 | Outpatient (RCR) ==
[2018-08-20 13:48] VITALS: BP 110/60
== END 2018-08-31 23:59 ==
LOC: CAR.REHAB 08:37
PROVIDERS: ATTEND Internal Medicine
DX: I25.10 Atherosclerotic heart disease of native coronary artery without angina pectoris (principal); Z95.5 Presence of coronary angioplasty implant and graft
CPT/HCPCS: 93798

== ENCOUNTER 2018-08-20 13:39 | Emergency (ER) ==
[2018-08-20 13:48] VITALS: BP 117/70; TEMP 97.4; BMI 40.3
--- NOTE | 2018-08-20 14:29 | DI ---
EXAM: CHEST FRONTAL VIEW HISTORY: Pain, cardiac rehabilitation. COMPARISON: 05/01/2018 FINDINGS: Mild cardiac enlargement is stable. Stable right port catheter. No acute infiltrates are seen. No vascular congestion. There is no consolidation, visible pleural fluid or pneumothorax. B ones reveal no acute fracture. IMPRESSION: No acute cardiopulmonary process.
--- NOTE | 2018-08-20 15:10 | ED.PDOC ---
General ED Provider: Dr. POP GUTHRIE Chief Complaint: Chest Pain Stated Complaint: was in the cardiac rehab suddnely during excersize developed perfused sweating some minor chest discomfort descibed as discmfor not pain was darrell to ed for evaluation on arrival pain free , no further sweating no short of breath Time Seen by Physician: 13:46 (seen with the nursing staff) Mode of Arrival: Wheelchair Information Source: Patient Exam Limitations: No limitations Primary Care Provider: GEORGE TSAI Nursing and Triage Documentation Reviewed and Agree: Yes Does patient meet sepsis criteria?: No System Inflammatory Response Syndrome: Not Applicable Sepsis Protocol: For patient's 13 years and over: Temp is 96.8 and below OR 101 and greater Pulse >90 BPM Resp >20/minute Acutely Altered Mental Status Are patient's symptoms suggestive of a new infection, such as: -Pneumonia -Skin, Soft Tissue -Endocarditis -UTI -Bone, Joint Infection -Implantable Device -Acute Abdominal Infection -Wound Infection -Meningitis -Blood Stream Catheter Infection -Unknown Review of Systems - Review Of Systems Constitutional: Reports: No symptoms Eyes: Reports: No symptoms Ears, Nose, Mouth, Throat: Reports: No symptoms Respiratory: Reports: No symptoms Cardiac: Reports: No symptoms GI: Reports: No symptoms : Reports: No symptoms Musculoskeletal: Reports: No symptoms Skin: Reports: No symptoms Neurological: Reports: No symptoms Endocrine: Reports: No symptoms Hematologic/Lymphatic: Reports: No symptoms All Other Systems: Reviewed and Negative Past Medical History - Past Medical History Previously Healthy: Yes Endocrine: Reports: None Cardiovascular: Reports: A-Fib Respiratory: Reports: None Hematological: Reports: None Gastrointestinal: Reports: None Genitourinary: Reports: None Neuro/Psych: Reports: None Musculoskeletal: Reports: None Cancer: Reports: None Last Menstrual Period: unknown - Surgical History General Surgical History: Reports: None - Family History Family History: Reports: None - Social History Smoking Status: Former smoker, Heavy tobacco smoker Hx Substance Use: No Alcohol Screening: None Physical Exam - Physical Exam Appearance: Well-appearing, No pain distress, Well-nourished Eyes: KING, EOMI, Conjunctiva clear ENT: Ears normal, Nose normal, Oropharynx normal Respiratory: Airway patent, Breath sounds clear, Breath sounds equal, Respirations nonlabored Cardiovascular: RRR, Pulses normal, No rub, No murmur GI/: Soft, Nontender, No masses, Bowel sounds normal, No Organomegaly Musculoskeletal: Normal strength, ROM intact, No edema, No calf tenderness Skin: Warm, Dry, Normal color Neurological: Sensation intact, Motor intact, Reflexes intact, Cranial nerves intact, Alert, Oriented Psychiatric: Affect appropriate, Mood appropriate Interpretation - Manager Credit Collections Rate: Normal Rhythm: Sinus Ectopy: None - EKG Interpretation Rate: Normal Rhythm: Sinus Ectopy: None Wrens: NL Physician Notification - Case Discussed Physician Notified: tonya LEE Time of Notification: 15:26 (TRANSFER TO ED ) Critical Care Note - Critical Care Note Total Time (mins): 0 Course - Course Hematology/Chemistry: 08/20/18 13:50 08/20/18 13:50 Orders, Labs, Meds: Lab Review 08/20/18 08/20/18 08/20/18 13:50 13:50 13:50 WBC 8.08 RBC 4.66 Hgb 13.0 Hct 39.5 MCV 84.8 MCH 27.9 MCHC 32.9 RDW Coeff of Maryjane 14.3 Plt Count 207 Immature Gran % (Auto) 0.2 Neut % (Auto) 65.9 Lymph % (Auto) 24.1 [place] % (Auto) 6.1 Eos % (Auto) 3.0 Baso % (Auto) 0.7 Immature Gran # (Auto) 0.0 Neut # (Auto) 5.3 Lymph # (Auto) 2.0 [place] # (Auto) 0.5 Eos # (Auto) 0.2 Baso # (Auto) 0.1 PT 9.5 INR 0.95 APTT 25.2 Sodium 138.5 Potassium 4.28 Chloride 103.7 Carbon Dioxide 25.2 Anion Gap 13.88 BUN 11.3 Creatinine 0.68 Estimated GFR (MDRD) 89.00 BUN/Creatinine Ratio 16.61 Glucose 151.7 H Calcium 9.15 Total Bilirubin 0.46 AST 23.7 ALT 31.6 Alkaline Phosphatase 137.6 H Total Creatine Kinase 58.8 Troponin I < 0.012 Total Protein 7.28 Albumin 4.49 Globulin 2.79 Albumin/Globulin Ratio 1.60 Orders Category Date Time Status EKG-(ED ONLY) Stat CARDIO 08/20/18 13:59 Completed CBC W/ AUTO DIFF Stat LAB 08/20/18 13:50 Completed COMPREHENSIVE METABOLIC PANEL Stat LAB 08/20/18 13:50 Completed CREATINE KINASE Stat LAB 08/20/18 13:50 Completed PARTIAL THROMBOPLASTIN TIME Stat LAB 08/20/18 13:50 Completed PT WITH INR Stat LAB 08/20/18 13:50 Completed TROPONIN I Stat LAB 08/20/18 13:50 Completed CHEST, 1V AP ONLY Stat RADS 08/20/18 14:02 Completed Vital Signs: Temp Pulse Resp BP Pulse Ox 08/20/18 13:40 97.4 F L 85 20 117/70 97 Departure - Departure Time of Disposition: 15:26 (SEEN WITH THE NURSING STAFF AT ALL TIMES REMAINED PAIN FREE SPOKE TO [facility] PT ACCEPTED FOR TRANSFER ) Disposition: TSF SHORT-TRM HOSP Discharge Problem: Chest pain Instructions: Chest Pain (ED) Condition: Good Pt referred to PMD for follow-up: Yes IPMP verified?: No Allergies/Adverse Reactions: Allergies adhesive Adverse Reaction (Verified 08/20/18 13:47) bandaids Adverse Reaction (Uncoded 07/29/17 16:48) Home Medications: Ambulatory Orders Cyclobenzaprine HCl [Flexeril] 10 mg PO Q8HR PRN 07/29/17 Diltiazem HCl [Diltiazem 24Hr Cd] 120 mg PO DAILY 07/29/17 Gabapentin [Neurontin] 600 mg PO TID 07/29/17 Levothyroxine Sodium [Synthroid] 150 mcg PO DAILY 07/29/17 Amlodipine Besylate [Norvasc] 5 mg PO DAILY 01/14/18 Aspirin [Aspir-Low] 81 mg PO DAILY 01/14/18 Clonazepam 0.5 mg PO BID PRN 01/14/18 Esomeprazole Magnesium [Nexium] 40 mg PO DAILY 01/14/18 Insulin Glargine,Hum.rec.anlog [Lantus Solostar] 22 unit SQ INSULIN EVENING Insulin Glargine,Hum.rec.anlog [Lantus Solostar] 28 unit SQ INSULIN MORNING Isosorbide Mononitrate [Imdur] 30 mg PO DAILY 01/14/18 Levomefolate/B6/B12/Algal Oil [Metanx Capsule] 1 each PO DAILY 01/14/18 Lisinopril [Zestril] 5 mg PO DAILY 01/14/18 Metformin HCl 500 mg PO TID 01/14/18 Nitroglycerin [Nitrostat] 0.4 mg SL Q5MIN X 3 DOSES PRN 01/14/18 Simvastatin 20 mg PO DAILY 01/14/18 Ticagrelor [Brilinta] 90 mg PO BID 01/14/18 Amitriptyline HCl 10 mg PO BEDTIME 08/20/18 Metoprolol Succinate [Toprol Xl] 100 mg PO DAILY 08/20/18
== END 2018-08-20 16:10 | disposition short-term general hospital (02) ==
LOC: ED 13:39
DX: R07.9 Chest pain, unspecified (principal); Z79.899 Other long term (current) drug therapy
CPT/HCPCS: 36415; 80053; 82550; 84484; 85025; 85610; 85730; 93005; 93010; 99285

== ENCOUNTER 2018-08-20 16:10 | Outpatient (CLI) ==
[2018-08-20 13:48] VITALS: BMI 40.3
== END 2018-08-20 16:36 | disposition short-term general hospital (02) ==
LOC: AMBL 16:10
PROVIDERS: ATTEND Internal Medicine
DX: R07.89 Other chest pain (principal); R61 Generalized hyperhidrosis; I25.2 Old myocardial infarction

== ENCOUNTER 2018-08-30 13:35 | Outpatient (CLI) | END 2018-08-30 13:55 | disposition short-term general hospital (02) | LOC: AMBL 13:35 | PROVIDERS: ATTEND Internal Medicine | DX: R07.9 Chest pain, unspecified (principal) ==

== ENCOUNTER 2018-09-01 07:14 | Outpatient (RCR) ==
[2018-09-29 11:53] VITALS: BP 114/56
== END 2018-10-01 23:59 ==
LOC: CAR.REHAB 07:14
PROVIDERS: ATTEND Internal Medicine
DX: I25.10 Atherosclerotic heart disease of native coronary artery without angina pectoris (principal); Z95.5 Presence of coronary angioplasty implant and graft
CPT/HCPCS: 93798

== ENCOUNTER 2018-11-01 08:57 | Outpatient (RCR) ==
[2018-11-03 14:39] VITALS: BP 130/90
== END 2018-11-03 15:00 | disposition home or self-care (01) ==
LOC: CAR.REHAB 08:57
PROVIDERS: ATTEND Internal Medicine
DX: I25.10 Atherosclerotic heart disease of native coronary artery without angina pectoris (principal); Z95.5 Presence of coronary angioplasty implant and graft
CPT/HCPCS: 93798

== ENCOUNTER 2018-12-16 18:06 | Emergency (ER) ==
[2018-12-16 18:13] VITALS: BP 136/84; TEMP 99.8; BMI 40.2
[2018-12-16] MEDS ORDERED: SODIUM CHLORIDE 1,000 ML IV STA (19:29)
[2018-12-16] MEDS ORDERED: DUONEB NEB STA (19:29)
--- NOTE | 2018-12-16 19:33 | ED.PDOC ---
General ED Provider: Dr. KISHORE BRICE Chief Complaint: Respiratory Complaint Stated Complaint: Patient states she has been coughing for the past two days with wheezing. Has a history of Smoking. Time Seen by Physician: 19:30 Mode of Arrival: Walk-In Information Source: Patient Exam Limitations: No limitations Primary Care Provider: GEORGE TSAI Nursing and Triage Documentation Reviewed and Agree: Yes Does patient meet sepsis criteria?: No System Inflammatory Response Syndrome: Not Applicable Sepsis Protocol: For patient's 13 years and over: Temp is 96.8 and below OR 101 and greater Pulse >90 BPM Resp >20/minute Acutely Altered Mental Status Are patient's symptoms suggestive of a new infection, such as: -Pneumonia -Skin, Soft Tissue -Endocarditis -UTI -Bone, Joint Infection -Implantable Device -Acute Abdominal Infection -Wound Infection -Meningitis -Blood Stream Catheter Infection -Unknown Respiratory Complaint Exam - Respiratory Complaint/Exam Onset/Duration: 2 days Symptoms Are: Still present Timing: Constant Initial Severity: Moderate Current Severity: Moderate Location: Chest Character: Reports: Productive cough (Green sputum ) Aggravating: Reports: URI Alleviating: Reports: None Associated Signs and Symptoms: Reports: Dyspnea, Chest pain (with cough only ), Wheezing, URI, Nasal congestion, Sore throat. Denies: Pleuritic chest pain, Hemoptysis, Dizziness, Calf pain, Calf swelling, Edema, Sinus discomfort, Vomiting, Weight loss, Decreased oral intake, Increased thirst, Increased appetite, Increased urination Related History: Reports: Similar episode History of Healthcare-Acquired Pneumonia: No Related Surgical History: Reports: None Pulmonary Embolism Risk Factors: None Cardiac Risk Factors: Reports: None Pseudomonas Risk Factors: Reports: None Tuberculosis Risk Factors: Reports: None Status Asthmaticus Risk Factors: Reports: None Home Oxygen Use: No Recent Stress Test: No Recent Echo/LV Function: No Current Antibiotic Use: No Current Asthma Medication Use: No Respiratory Distress: None Inadequate Respiratory Effort: No Dysphagia Present: No Stridor Present: No JVD Present: No Accessory Muscle Use: No Retractions: Not Present Diminished Breath Sounds: No Sinus Tenderness: None Grunting Respirations: No Kussmaul Respirations: No Differential Diagnoses: Pneumonia, Bronchitis Quality Indicators For Pneumonia: Blood Cultures-SCU admit Review of Systems - Review Of Systems Constitutional: Reports: No symptoms Eyes: Reports: No symptoms Ears, Nose, Mouth, Throat: Reports: No symptoms Respiratory: Reports: Cough (productive of green sputum ), Short of air Cardiac: Reports: No symptoms GI: Reports: No symptoms : Reports: No symptoms Musculoskeletal: Reports: No symptoms Skin: Reports: No symptoms Neurological: Reports: No symptoms Endocrine: Reports: No symptoms Hematologic/Lymphatic: Reports: No symptoms All Other Systems: Reviewed and Negative Past Medical History - Past Medical History Previously Healthy: Yes Endocrine: Reports: DM 2, Hypothyroid, Dyslipidemia Cardiovascular: Reports: CAD (Dr Lugo is her cariologist ), [place], A-Fib Respiratory: Reports: None Hematological: Reports: None Gastrointestinal: Reports: GERD Genitourinary: Reports: None Neuro/Psych: Reports: Anxiety Musculoskeletal: Reports: Back Pain Cancer: Reports: Other (ovarian Ca 2015) Last Menstrual Period: none - Surgical History General Surgical History: Reports: Stent Placement (cardiac stent x2 in december 2017, x 04 May 2018), Other (cardiac ablation 2015, complete hysterectomy september 2015) - Family History Family History: Reports: None - Social History Smoking Status: Former smoker Hx Substance Use: No Alcohol Screening: None Physical Exam - Physical Exam Appearance: Ill-appearing, Obese Ill-appearing: Moderate Pain Distress: Mild Eyes: KING, EOMI, Conjunctiva clear Respiratory: Wheezes (mostly on the ) Cardiovascular: Tachycardia GI/: Soft, Nontender, No masses, Bowel sounds normal, No Organomegaly Musculoskeletal: Normal strength, ROM intact, No edema, No calf tenderness Skin: Warm, Dry, Normal color Neurological: Sensation intact, Motor intact, Reflexes intact, Cranial nerves intact, Alert, Oriented Interpretation - Radiology Interpretation Radiology Interpretation By: Radiologist Radiology Results: Negative Exam Interpreted: CXR - Histopathologist Rate: Normal Rhythm: Sinus Ectopy: None - EKG Interpretation Time of EKG #1: 19:51 Rate: Tachy Rhythm: Sinus Ectopy: None [place]: [place] ST Segment: Normal Interpretation: Sinus Tachycardia Critical Care Note - Critical Care Note Total Time (mins): 35 Course - Course Hematology/Chemistry: 12/16/18 19:56 12/16/18 19:56 Orders, Labs, Meds: Lab Review 12/16/18 12/16/18 12/16/18 19:56 19:56 19:56 WBC 9.44 RBC 4.61 Hgb 12.6 Hct 38.5 MCV 83.5 MCH 27.3 MCHC 32.7 RDW Coeff of Maryjane 15.0 H Plt Count 252 Immature Gran % (Auto) 0.5 Neut % (Auto) 58.9 Lymph % (Auto) 24.3 [place] % (Auto) 10.5 H Eos % (Auto) 5.3 Baso % (Auto) 0.5 Immature Gran # (Auto) 0.1 Neut # (Auto) 5.6 Lymph # (Auto) 2.3 [place] # (Auto) 1.0 Eos # (Auto) 0.5 Baso # (Auto) 0.1 Puncture Site O2 Saturation ABG pH ABG pCO2 ABG pO2 ABG HCO3 ABG Total CO2 ABG Base Excess Saúl Test FiO2 % Sodium 141.2 Potassium 4.45 Chloride 107.6 H Carbon Dioxide 25.9 Anion Gap 12.15 BUN 16.1 Creatinine 0.86 Estimated GFR (MDRD) 68.00 BUN/Creatinine Ratio 18.72 Glucose 124.6 H Lactic Acid Calcium 9.54 Total Bilirubin 0.38 AST 21.5 ALT 20.9 Alkaline Phosphatase 142.4 H Total Creatine Kinase 68.3 Troponin I < 0.012 Total Protein 7.77 Albumin 4.21 Globulin 3.56 Albumin/Globulin Ratio 1.18 Procalcitonin < 0.05 12/16/18 12/16/18 19:56 20:27 WBC RBC Hgb Hct MCV MCH MCHC RDW Coeff of Maryjane Plt Count Immature Gran % (Auto) Neut % (Auto) Lymph % (Auto) [place] % (Auto) Eos % (Auto) Baso % (Auto) Immature Gran # (Auto) Neut # (Auto) Lymph # (Auto) [place] # (Auto) Eos # (Auto) Baso # (Auto) Puncture Site Lb O2 Saturation 96.0 ABG pH 7.456 H ABG pCO2 33.4 L ABG pO2 79.0 L ABG HCO3 23.5 ABG Total CO2 25 ABG Base Excess 0 Saúl Test + FiO2 % 21.0 Sodium Potassium Chloride Carbon Dioxide Anion Gap BUN Creatinine Estimated GFR (MDRD) BUN/Creatinine Ratio Glucose Lactic Acid 1.44 Calcium Total Bilirubin AST ALT Alkaline Phosphatase Total Creatine Kinase Troponin I Total Protein Albumin Globulin Albumin/Globulin Ratio Procalcitonin Orders Category Date Time Status ABG DRAW REQUEST Stat CARDIO 12/16/18 20:28 Ordered EKG-(ED ONLY) Stat CARDIO 12/16/18 19:29 Ordered NEBULIZER TREATMENT Stat CARDIO 12/16/18 19:30 Ordered ED ASPHALT TILE FLOOR LAYER APPLIED .ONCE EMERGENCY 12/16/18 19:29 Active ED IV/MEDIPORT/POWERPORT .ONCE EMERGENCY 12/16/18 19:29 Active ABG Stat LAB 12/16/18 20:27 Completed BLOOD CULTURE (ED ONLY) Stat LAB 12/16/18 19:56 Received CBC W/ AUTO DIFF Stat LAB 12/16/18 19:56 Completed COMPREHENSIVE METABOLIC PANEL Stat LAB 12/16/18 19:56 Completed CREATINE KINASE Stat LAB 12/16/18 19:56 Completed LACTIC ACID Stat LAB 12/16/18 19:56 Completed PROCALCITONIN Stat LAB 12/16/18 19:56 Completed TROPONIN I Stat LAB 12/16/18 19:56 Completed Dexamethasone 4 mg/ml Inj [Decadron 4 mg/ml Sdv] MEDS 12/16/18 20:02 Discontinued 8 mg IM ONCE STA Ipratropium/Albuterol Neb [Duoneb] MEDS 12/16/18 19:29 Discontinued 1 vial NEB ONCE STA CHEST, 2 VIEWS PA & LAT Stat RADS 12/16/18 19:29 Completed Medications Discontinued Medications Generic Name Dose Route Start Last Admin Trade Name Freq PRN Reason Stop Dose Admin Albuterol/Ipratropium 1 vial 12/16/18 19:29 12/16/18 20:00 Duoneb NEB 12/16/18 19:30 1 vial ONCE STA Administration Dexamethasone Sodium Phosphate 8 mg 12/16/18 20:02 12/16/18 20:22 Decadron 4 Mg/Ml Sdv IM 12/16/18 20:03 8 mg ONCE STA Administration Vital Signs: Temp Pulse Resp BP Pulse Ox 12/16/18 18:06 99.8 F H 113 H 20 136/84 96 Departure - Departure Time of Disposition: 20:38 Disposition: HOME SELF-CARE Discharge Problem: Acute bronchitis Qualifiers: Bronchitis organism: unspecified organism Qualified Code(s): J20.9 - Acute bronchitis, unspecified Instructions: Acute Bronchitis (ED), Wheezing (ED) Condition: Stable Pt referred to PMD for follow-up: Yes IPMP verified?: No Additional Instructions: Take Medications as prescribed Follow up with PCP in 3 days Prescriptions: Albuterol Sulfate [Proair Hfa] 2 puff IH Q6H PRN #1 puff PRN Reason: Wheezing Azithromycin [Zithromax] 250 mg PO DIRECTED #6 tablet Prednisone 20 mg PO DAILYWM #5 tablet Allergies/Adverse Reactions: Allergies adhesive Adverse Reaction (Verified 12/16/18 18:13) bandaids Adverse Reaction (Uncoded 07/29/17 16:48) Home Medications: Ambulatory Orders Cyclobenzaprine HCl [Flexeril] 10 mg PO Q8HR PRN 07/29/17 Gabapentin [Neurontin] 600 mg PO TID 07/29/17 Levothyroxine Sodium [Synthroid] 150 mcg PO DAILY 07/29/17 Amlodipine Besylate [Norvasc] 5 mg PO DAILY 01/14/18 Aspirin [Aspir-Low] 81 mg PO DAILY 01/14/18 Clonazepam 0.5 mg PO BID PRN 01/14/18 Esomeprazole Magnesium [Nexium] 40 mg PO DAILY 01/14/18 Insulin Glargine,Hum.rec.anlog [Lantus Solostar] 25 unit SQ INSULIN EVENING Insulin Glargine,Hum.rec.anlog [Lantus Solostar] 30 unit SQ INSULIN MORNING Isosorbide Mononitrate [Imdur] 30 mg PO DAILY 01/14/18 Levomefolate/B6/B12/Algal Oil [Metanx Capsule] 1 each PO DAILY 01/14/18 Lisinopril [Zestril] 5 mg PO DAILY 01/14/18 Metformin HCl 500 mg PO TID 01/14/18 Nitroglycerin [Nitrostat] 0.4 mg SL Q5MIN X 3 DOSES PRN 01/14/18 Ticagrelor [Brilinta] 90 mg PO BID 01/14/18 Amitriptyline HCl 10 mg PO BEDTIME 08/20/18 Atorvastatin Calcium [Lipitor] 40 mg PO DAILY 11/24/18 Hydrocodone/Acetaminophen [Hydrocodon-Acetaminoph 7.5-325] 1 each PO Q4HR PRN Insulin Lispro [Humalog] 3 - 5 unit SQ TID 11/24/18 Albuterol Sulfate [Proair Hfa] 2 puff IH Q6H PRN #1 puff 12/16/18 Azithromycin [Zithromax] 250 mg PO DIRECTED #6 tablet 12/16/18 Prednisone 20 mg PO DAILYWM #5 tablet 12/16/18 Disposition Discussed With: Patient
--- NOTE | 2018-12-16 19:48 | DI ---
EXAM: Two views of the chest. History: Cough and green sputum Comparison: Chest radiograph 11/24/2018 Findings: Heart size is normal. Right central line seen in place. No focal consolidation. No appr eciable pleural fluid and no pneumothorax. No acute osseous abnormalities. Impression: No acute cardiopulmonary process
[2018-12-16] MEDS ORDERED: DECADRON 4 MG/ML SDV IM STA (20:02)
== END 2018-12-16 20:45 | disposition home or self-care (01) ==
LOC: ED 18:06
DX: J20.9 Acute bronchitis, unspecified (principal); R06.02 Shortness of breath; E11.9 Type 2 diabetes mellitus without complications; E03.9 Hypothyroidism, unspecified; E78.5 Hyperlipidemia, unspecified; I25.10 Atherosclerotic heart disease of native coronary artery without angina pectoris; R00.0 Tachycardia, unspecified; Z79.899 Other long term (current) drug therapy; I25.2 Old myocardial infarction; Z95.5 Presence of coronary angioplasty implant and graft
CPT/HCPCS: 36415; 80053; 82550; 82803; 83605; 84145; 84484; 85025; 87040; 93005; 93010; 94640; 96372; 99283

== ENCOUNTER 2018-12-17 03:05 | Outpatient (CLI) ==
[2018-12-17 03:24] VITALS: BMI 40.9
== END 2018-12-17 03:10 | disposition critical access hospital (66) ==
LOC: AMBL 03:05
PROVIDERS: ATTEND Internal Medicine Geriatric Medicine
DX: R73.9 Hyperglycemia, unspecified (principal); R42 Dizziness and giddiness; J40 Bronchitis, not specified as acute or chronic

== ENCOUNTER 2018-12-17 03:15 | Emergency (ER) ==
[2018-12-17 03:24] VITALS: TEMP 98.2; BMI 40.9
[2018-12-17] MEDS ORDERED: SODIUM CHLORIDE 1,000 ML IV STA ×2 (03:49→05:42)
--- NOTE | 2018-12-17 03:50 | ED.PDOC ---
General ED Provider: Dr. KISHORE BRICE Chief Complaint: Diabetes Stated Complaint: was treated last night here for bronchitis with steroids. Her blood glucose went up to 441. she also started feeling dizzy. Call ambulance. Time Seen by Physician: 03:49 Mode of Arrival: Stretcher Information Source: Patient Primary Care Provider: GEORGE TSAI Nursing and Triage Documentation Reviewed and Agree: Yes Does patient meet sepsis criteria?: No System Inflammatory Response Syndrome: Not Applicable Sepsis Protocol: For patient's 13 years and over: Temp is 96.8 and below OR 101 and greater Pulse >90 BPM Resp >20/minute Acutely Altered Mental Status Are patient's symptoms suggestive of a new infection, such as: -Pneumonia -Skin, Soft Tissue -Endocarditis -UTI -Bone, Joint Infection -Implantable Device -Acute Abdominal Infection -Wound Infection -Meningitis -Blood Stream Catheter Infection -Unknown Endocrine Complaint Exam - Diabetic Complication Complaint/Exam Onset/Duration: tonight Symptoms Are: Still present Timing: Intermittent Initial Severity: Moderate Current Severity: Moderate Character: Alert Aggravating: Reports: Medication change Alleviating: Reports: Medications Associated Signs and Symptoms: Reports: Diaphoresis Related History: Reports: DM 2 Last Glucometer Readin Cardiac Risk Factors: Reports: DM, Hypertension CVA Risk Factors: Reports: DM, Hypertension Serious Bacterial Infection Risk Factors: Reports: None Related Surgical History: Reports: None Acetone on Breath: No Dry Mucous Membranes: No Kussmaul Respirations: No Glascow Coma Scale (see protocol): 15 Meningeal Signs: No Focal Weakness: None Focal Sensory Loss: None Gait: Normal Nystagmus Present: No Gag Reflex Present: Yes Finger to Nose: Normal Babinski Sign: Negative Right, Negative Left Heel to Toe Normal: No Differential Diagnoses: Diabetic Ketoacidosis, Hyperglycemia Review of Systems - Review Of Systems Constitutional: Reports: No symptoms Eyes: Reports: No symptoms Ears, Nose, Mouth, Throat: Reports: No symptoms Respiratory: Reports: No symptoms Cardiac: Reports: Lightheadedness GI: Reports: No symptoms : Reports: No symptoms Musculoskeletal: Reports: No symptoms Skin: Reports: No symptoms Neurological: Reports: Anxiety Endocrine: Reports: No symptoms Hematologic/Lymphatic: Reports: No symptoms All Other Systems: Reviewed and Negative Past Medical History - Past Medical History Previously Healthy: Yes Endocrine: Reports: DM 2 (insuline dependent ), Hypothyroid, Dyslipidemia Cardiovascular: Reports: CAD (Dr Lugo is her cariologist ), MD, A-Fib Respiratory: Reports: None Hematological: Reports: None Gastrointestinal: Reports: GERD Genitourinary: Reports: None Neuro/Psych: Reports: Anxiety Musculoskeletal: Reports: Back Pain Cancer: Reports: Other (ovarian Ca 2015) Last Menstrual Period: PT HAS HAD A HYSTERECTOMY - Surgical History General Surgical History: Reports: Stent Placement (cardiac stent x2 in december 2017, x 04 May 2018), Other (cardiac ablation 2015, complete hysterectomy september 2015) - Family History Family History: Reports: None - Social History Smoking Status: Former smoker Hx Substance Use: No Alcohol Screening: None Physical Exam - Physical Exam Appearance: Ill-appearing, Obese Ill-appearing: Mild Eyes: KING, EOMI, Conjunctiva clear Neck: Supple Respiratory: Airway patent, Breath sounds clear, Breath sounds equal, Respirations nonlabored Cardiovascular: RRR, Pulses normal, No rub, No murmur GI/: Soft, Nontender, No masses, Bowel sounds normal, No Organomegaly Musculoskeletal: Normal strength, ROM intact, No edema, No calf tenderness Skin: Warm, Dry, Normal color Neurological: Sensation intact, Motor intact, Reflexes intact, Cranial nerves intact, Alert, Oriented Psychiatric: Anxious Critical Care Note - Critical Care Note Total Time (mins): 35 Course - Course Hematology/Chemistry: 12/17/18 03:58 12/17/18 03:58 Orders, Labs, Meds: Lab Review 12/17/18 12/17/18 12/17/18 03:58 03:58 05:00 WBC 8.41 RBC 4.78 Hgb 12.9 Hct 40.4 MCV 84.5 MCH 27.0 MCHC 31.9 RDW Coeff of Maryjane 14.9 H Plt Count 251 Immature Gran % (Auto) 0.7 Neut % (Auto) 86.9 Lymph % (Auto) 10.5 [place] % (Auto) 1.4 Eos % (Auto) 0.1 Baso % (Auto) 0.4 Immature Gran # (Auto) 0.1 Neut # (Auto) 7.3 H Lymph # (Auto) 0.9 [facility] # (Auto) 0.1 L Eos # (Auto) 0.0 Baso # (Auto) 0.0 Sodium 141.1 Potassium 4.40 Chloride 107.6 H Carbon Dioxide 21.6 L Anion Gap 16.30 BUN 18.3 H Creatinine 0.84 Estimated GFR (MDRD) 70.00 BUN/Creatinine Ratio 21.78 Glucose 331.7 H D Calcium 9.73 Total Bilirubin 0.43 AST 24.9 ALT 29.9 Alkaline Phosphatase 172.2 H D Total Protein 7.74 Albumin 4.32 Globulin 3.42 Albumin/Globulin Ratio 1.26 Urine Color Yellow Urine Clarity Cloudy Urine pH 5.0 Ur Specific [place] 1.015 Urine Protein Negative Urine Glucose (UA) 2+ Urine Ketones Negative Urine Blood Trace-lysed Urine Nitrite Positive Urine Bilirubin Negative Urine Urobilinogen 0.2 Ur Leukocyte Esterase Negative Urine Microscopic RBC 2-5 Urine Microscopic WBC 2-5 Ur Squamous Epith Cells 10-20 Urine Bacteria 2+ Orders Category Date Time Status ED ORTHOSTATIC VITAL SIGNS .ONCE EMERGENCY 12/17/18 03:49 Active IV [ED IV/MEDIPORT/POWERPORT] .ONCE EMERGENCY 12/17/18 04:04 Active CBC W/ AUTO DIFF Stat LAB 12/17/18 03:58 Completed COMPREHENSIVE METABOLIC PANEL Stat LAB 12/17/18 03:58 Completed URINALYSIS C & S IF INDICATED Stat LAB 12/17/18 05:00 Completed URINE CULTURE Stat LAB 12/17/18 05:00 Received 0.9 % Sodium Chloride [Saline Flush] MEDS 12/17/18 04:04 Active 1 syr IVF PRN PRN SODIUM CHLORIDE 0.9% @ 1,000 MLS/HR(1,000ml) MEDS 12/17/18 05:42 Ordered Sodium Chloride 0.9% [Sodium Chloride] 1,000 ml IV BOLUS Sodium Chloride 0.9% [Sodium Chloride] 1,000 ml MEDS 12/17/18 03:49 Discontinued IV BOLUS Medications Generic Name Dose Route Start Last Admin Trade Name Freq PRN Reason Stop Dose Admin Sodium Chloride 1,000 mls @ 1,000 mls/hr 12/17/18 05:42 Sodium Chloride IV 12/17/18 06:41 BOLUS STA Sodium Chloride 1 syr 12/17/18 04:04 12/17/18 04:11 Saline Flush IVF 1 syr PRN PRN Administration To flush IV Discontinued Medications Generic Name Dose Route Start Last Admin Trade Name Freq PRN Reason Stop Dose Admin Sodium Chloride 1,000 mls @ 1,000 mls/hr 12/17/18 03:49 12/17/18 04:11 Sodium Chloride IV 12/17/18 04:48 1,000 mls/hr BOLUS STA Administration Vital Signs: Temp Pulse Resp BP Pulse Ox 12/17/18 03:47 118 H 129/80 12/17/18 03:46 114 H 124/85 12/17/18 03:45 102 H 129/78 12/17/18 03:16 98.2 F 100 H 18 137/85 96 Departure - Departure Time of Disposition: 06:55 Disposition: HOME SELF-CARE Discharge Problem: Hyperglycemia, drug-induced Instructions: Diabetes and Exercise (ED), Diabetic Hyperglycemia (ED) Condition: Stable Pt referred to PMD for follow-up: Yes IPMP verified?: No Additional Instructions: Use home sliding scale to manage your blood glucose. Allergies/Adverse Reactions: Allergies adhesive Adverse Reaction (Verified 12/17/18 03:24) bandaids Adverse Reaction (Uncoded 12/17/18 03:24) Home Medications: Ambulatory Orders Cyclobenzaprine HCl [Flexeril] 10 mg PO Q8HR PRN 07/29/17 Gabapentin [Neurontin] 600 mg PO TID 07/29/17 Levothyroxine Sodium [Synthroid] 150 mcg PO DAILY 07/29/17 Amlodipine Besylate [Norvasc] 5 mg PO DAILY 01/14/18 Aspirin [Aspir-Low] 81 mg PO DAILY 01/14/18 Clonazepam 0.5 mg PO BID PRN 01/14/18 Esomeprazole Magnesium [Nexium] 40 mg PO DAILY 01/14/18 Insulin Glargine,Hum.rec.anlog [Lantus Solostar] 20 unit SQ BID 01/14/18 Isosorbide Mononitrate [Imdur] 30 mg PO DAILY 01/14/18 Lisinopril [Zestril] 5 mg PO DAILY 01/14/18 Metformin HCl 500 mg PO TID 01/14/18 Nitroglycerin [Nitrostat] 0.4 mg SL Q5MIN X 3 DOSES PRN 01/14/18 Ticagrelor [Brilinta] 90 mg PO BID 01/14/18 Amitriptyline HCl 10 mg PO BEDTIME 08/20/18 Atorvastatin Calcium [Lipitor] 40 mg PO DAILY 11/24/18 Hydrocodone/Acetaminophen [Hydrocodon-Acetaminoph 7.5-325] 1 each PO Q4HR PRN Insulin Lispro [Humalog] 3 - 5 unit SQ TID 11/24/18 Albuterol Sulfate [Proair Hfa] 2 puff IH Q6H PRN #1 puff 12/16/18 Azithromycin [Zithromax] 250 mg PO DIRECTED #6 tablet 12/16/18 Prednisone 20 mg PO DAILYWM #5 tablet 12/16/18 Disposition Discussed With: Patient
[2018-12-17 03:54] VITALS: BP 129/80
== END 2018-12-17 06:45 | disposition home or self-care (01) ==
LOC: ED 03:15
DX: E09.65 Drug or chemical induced diabetes mellitus with hyperglycemia (principal); T38.0X5A Adverse effect of glucocorticoids and synthetic analogues, initial encounter; Z79.4 Long term (current) use of insulin; R42 Dizziness and giddiness; J40 Bronchitis, not specified as acute or chronic; I10 Essential (primary) hypertension; I25.10 Atherosclerotic heart disease of native coronary artery without angina pectoris; I25.2 Old myocardial infarction; E03.9 Hypothyroidism, unspecified; E78.5 Hyperlipidemia, unspecified; Z95.5 Presence of coronary angioplasty implant and graft; Z79.899 Other long term (current) drug therapy
CPT/HCPCS: 36415; 80053; 81001; 82962; 85025; 87086; 87186; 96360; 96361; 99283